=== PATIENT | male | born 1965 | race Caucasian/White ===

== ENCOUNTER → 2020-09-04 13:32 | Outpatient (BNVA) | payer MEDICARE, OTHER, SELFPAY | PROVIDERS: PCP Nurse Practitioner Primary Care; Referring Provider Nurse Practitioner Primary Care; Visit Provider Nurse Practitioner Family | DX: Z13.89 Encounter for screening for other disorder (principal) | CPT/HCPCS: Q3014 ==

== ENCOUNTER 2020-09-05 10:25 | Outpatient (REF) | payer MEDICARE, OTHER, SELFPAY ==
[2020-09-05 11:13] LABS: Hematocrit 47.4 % (42-52); Hemoglobin 15.5 g/dl (14.0-18.0); Mean Corpuscular HGB Conc 32.7 g/dl (31.0-36.0); Mean Corpuscular Hemoglobin 30.7 pg (27.0-33.0); Mean Corpuscular Volume 93.9 fL (80-98); Mean Platelet Volume 10.6 fL (9.4-12.4); Platelet Count 171 X10*3/uL (160-400); Red Blood Count 5.05 X10*6/uL (4.60-5.80); Red Cell Distribution Width 12.2 % (11.0-16.0); White Blood Count 5.9 X10*3/uL (4.8-10.8)
[2020-09-05 12:01] LABS: Alanine Aminotransferase 82 U/L (0-40); Albumin Level 4.7 g/dL (3.5-5.0); Alkaline Phosphatase 60 U/L (39-117); Anion Gap 13 (12-20); Aspartate Amino Transferase 56 U/L (5-37); Blood Urea Nitrogen 13 mg/dL (9-16); Calcium 9.5 mg/dL (8.4-10.2); Carbon Dioxide 29 mmol/L (22-29); Chloride 104 mmol/L (96-108); Estimated Glomerular Filt Rate > 60; Glucose Random 80 mg/dL (60-115); Potassium 4.8 mmol/l (3.3-5.1); Sodium 141 mmol/L (135-145); Total Protein 7.7 g/dL (6.5-8.0)
== END 2020-09-05 10:26 | disposition home or self-care (01) ==
LOC: HO.LAB 10:25
PROVIDERS: PCP Nurse Practitioner Primary Care; Visit Provider Nurse Practitioner Family
DX: R19.7 Diarrhea, unspecified (principal); R14.0 Abdominal distension (gaseous)
CPT/HCPCS: 36415; 80053; 85027

== ENCOUNTER 2020-12-03 19:45 | Emergency (ER) | payer MEDICARE, OTHER, SELFPAY ==
[2020-12-03 19:59] VITALS: BP 135/96; BP 140/50; PULSE 73; PULSE 77; RESP 18; TEMP 37.1; O2SAT 92; O2SAT 98; BMI 24.3
--- NOTE | 2020-12-03 20:17 | PC.NURSE ---
assumed care of pt. Pt resting in stretcher in NAD. PA in room for eval.
--- NOTE | 2020-12-03 21:21 | ED_ITS ---
HPI - Overdose General Chief Complaint: Overdose Stated Complaint: OD Time Seen by Provider: 12/03/20 21:20 Source: patient Mode of arrival: ambulatory Limitations: no limitations History of Present Illness HPI Narrative: Patient presents to ED for accidental overdose on heroin. Patient states he has been clean for a while and then he saw some body doing heroin a park and had urgently took some heroin. Patient states over the was accidental. Patient states he was not trying to kill himself. Patient is erase that he does not want detox and able to stop doing heroin by myself. Patient denies any suicidal or homicidal thoughts Related Data Home Medications Medication Instructions Recorded Confirmed aspirin 81 mg tablet,delayed 81 mg PO DAILY 09/04/20 09/04/20 release atorvastatin 10 mg tablet 10 mg PO BEDTIME 09/04/20 09/04/20 propranolol 120 mg capsule,24 120 mg PO BEDTIME 09/04/20 09/04/20 hr,extended release Previous Rx's Medication Instructions Recorded methylcellulose (laxative) 500 mg 500 mg PO DAILY #30 tab 09/04/20 tablet Allergies Allergy/AdvReac Type Severity Reaction Status Date / Time No Known Allergies Allergy Verified 12/03/20 19:58 Review of Systems Review of Systems: Yes all other systems are reviewed and are negative Constitutional: Constitutional: Reports as per HPI and Reports no additional constitutional complaints Eyes: Eyes: Reports as per HPI and Reports no additional eye complaints ENT: Reports system reviewed and no additional complaints, except as docum ented and Reports as per HPI Cardiovascular: Cardiovascular: Reports as per HPI and Reports no additional cardiovascular complaints Respiratory: Respiratory: Reports as per HPI and Reports no additional respiratory complaints Gastrointestinal: Gastrointestinal: Reports as per HPI and Reports no additional gastrointestinal complaints Genitourinary: Genitourinary: Reports no additional male genitourinary complaints and Reports as per HPI Musculoskeletal: Musculoskeletal: Reports no additional musculoskeletal complaints and Reports as per HPI Neurologic: Reports system reviewed and no additional complaints, except as documented and Reports as per HPI Psychiatric: Psychiatric: Reports no additional psychiatric complaints and Reports as per HPI PMFSH Past Medical History Medical History (Updated 12/04/20 @ 00:01 by Trip Mai) EtOH dependence Heroin addiction Surgical History (Updated 09/04/20 @ 13:39 by HOME Neri) History of back surgery (~01/2013) Hx of colonoscopy (~2010) Hx of rotator cuff surgery (~08/2013) Family History Family History (Updated 09/04/20 @ 13:41 by HOME Nrei) Father Heart disease Myocardial infarct Mother Stomach cancer Social History Social History (Updated 09/04/20 @ 13:44 by HOME Neri) Alcohol intake: current Alcohol intake frequency: 3 or more drinks per day Alcohol type: beer Smoking Status: Former smoker Advance Directives: No Advance Directives Information Provided: Yes Physical Exam Vital Signs: Vital Signs: Last Vital Signs Temp 98.7 F 12/03/20 19:59 Pulse 73 12/03/20 19:59 Resp 18 12/03/20 19:59 BP 135/96 H 12/03/20 19:59 Pulse Ox 98 12/03/20 19:59 Body Mass Index 24.3 Const: General: cooperative, healthy appearing, comfortable, no acute distress, well developed, alert and awake Orientation/consciousness: patient oriented x3 HENMT: Head: Yes normal to inspection, Yes No palpable skull fracture present, Yes normocephalic, Yes atraumatic, Yes abrasion, No Bermudez's sign, No contusion, No cranial bruits, No hematoma, No laceration, No occipital foramen tenderness, No palpable skull fracture, No raccoon eyes, No scalp lesion, No scalp tenderness, No Temporal artery tenderness present and No periorbital ecchymosis Eyes: General: appearance normal, both eyes and all related structures Neck: Neck: Yes normal visual inspection, Yes full ROM, Yes no lymphadenopathy, Yes no meningeal signs, Yes trachea midline, Yes supple and No tender Chest: Chest palpation & inspection: normal inspection of the chest and normal palpation of entire chest wall Resp: Effort & Inspection: normal respiratory effort and able to speak in complete sentences Auscultation: clear to auscultation bilaterally Cardio: Jugular venous distension: no JVD Heart sounds: S1 normal heart sound present and S2 normal heart sound present GI: Inspection: Yes normal to inspection and No abdominal wall ecchymosis Palpation (GI): Soft to palpation, not firm, nontender, no guarding and not rigid : General: No CVA tenderness and Yes no CVA tenderness Back/Spine/Pelvis: Back: no CVA tenderness, No CVA tenderness and No back tenderness Skin: General skin exam: no rashes or lesions noted and elasticity normal Neuro: General: patient oriented x3, no meningeal signs and CN's II-XI intact bilaterally Cranial nerves: Yes CN's II-XII intact bilaterally Extrem: General: Yes normal to inspection and Yes full ROM Psych: Appearance: grossly normal, well kempt and not disheveled Course Course Course Narrative: Patient does not want detox. Patient alert oriented x3. Will evaluate patient for least on a half to make sure oxygen does not desaturate. Reevaluation(s) Reevaluation #1: Patient vital signs remained stable. Patient's O2 saturation remained above 97%. Patient 1 episode of emesis resolved with Reglan. Once again patient does not want detox will be discharged. MDM - Overdose MDM Narrative Medical decision making narrative: Opioid abuse. Accidental overdose Discharge Plan Discharge Clinical Impression: Drug overdose, Opiate abuse, episodic Patient Disposition: Home, Self-Care Instructions: Adult Overdose (ED), Opioid Use Disorder (ED) Additional Instructions: Return to the ED for any suicidal/homicidal ideation, auditory/visual hallucinations, or any other physical complaints. Prescriptions: No Action propranolol 120 mg capsule,extended release 24 hr 120 mg PO BEDTIME RF: 0 atorvastatin 10 mg tablet 10 mg PO BEDTIME RF: 0 aspirin [Adult Low Dose Aspirin] 81 mg tablet,delayed release (DR/EC) 81 mg PO DAILY RF: 0 Citrucel 500 mg tablet 500 mg PO DAILY Qty: 30 RF: 2 Referrals: Gunjan Wright [facility] [Primary Care Provider] - 2 days (Opiate abuse) Interventions: ED Discharge Assessment Last Done: 12/03/20 22:30 Discharge Date/Time: 12/03/20 22:31 Print Language: Malawian
[2020-12-03] MEDS: Metoclopramide HCl 10 MG/2 ML VIAL IM (21:25)
--- NOTE | 2020-12-03 21:29 | PC.NURSE ---
PT VOMITING IN ROOM ON FLOOR. MD AWARE AND MEDICATED PER EMAR FOR NAUSEA. PT REQUESTING ADENIKE LAUREN. PT GIVEN ICE CHIPS.
--- NOTE | 2020-12-03 22:27 | PC.NURSE ---
PT WALKS WITH STEADY EVEN GAIT TO DECON TO RETRIEVE BELONGINGS.PT VERBALIZE U/S OF DISCHARGE INSTRUCTIONS AND LEFT ED AMB.
== END 2020-12-03 22:31 | disposition home or self-care (01) ==
PROVIDERS: Emergency Provider Internal Medicine; PCP Nurse Practitioner Primary Care
DX: T40.1X1A Poisoning by heroin, accidental (unintentional), initial encounter (principal); F11.10 Opioid abuse, uncomplicated; Y92.9 Unspecified place or not applicable; Z79.899 Other long term (current) drug therapy; Z71.51 Drug abuse counseling and surveillance of drug abuser
CPT/HCPCS: 96372; 99283; J2765

== ENCOUNTER 2021-08-03 13:02 | Emergency (ER) | payer MEDICARE, OTHER, SELFPAY ==
--- NOTE | ~2021-08-03 | XR_ITS ---
EXAMINATION: CR LEFT HAND/WRIST CLINICAL INFORMATION: Fall. COMPARISON: Report from prior right hand films dated 05/30/2012. Actual images are not available for review. TECHNIQUE: 4 views of the left hand/wrist. FINDINGS: There is a acute mildly impacted and nondisplaced transverse fracture of the distal radius with overlying prominent soft tissue swelling. No other acute fracture or dislocation is seen. No radiopaque foreign body is seen in the soft tissues. The carpal rows remain intact. Minimal osteoarthritic changes are seen at the distal interphalangeal joints of all digits. XR/XR hand wrist LT IMPRESSION: Nondisplaced partially impacted transverse fracture of the distal radius is seen with overlying prominent soft tissue swelling.
[2021-08-03 13:08] VITALS: BP 140/90; PULSE 73
[2021-08-03 13:15] VITALS: BP 112/72; PULSE 69; RESP 18; TEMP 36.9; O2SAT 99; BMI 24.3
--- NOTE | 2021-08-03 13:56 | ED_ITS ---
HPI - Overdose General Chief Complaint: Overdose Stated Complaint: HEROIN OD,NARCAN GIVEN W/GOOD RESULT Time Seen by Provider: 08/03/21 13:55 Source: patient Mode of arrival: EMS Limitations: no limitations History of Present Illness HPI Narrative: This is a 55-year-old male past medical history significant for opiate use disorder, alcohol use disorder, hypertension presents to the emergency department with EMS for a heroin overdose just prior to his arrrival. According to EMS he was found unresponsive by a police, however patient tells me he was not unresponsive. He was given 1 dose of Narcan, patient tells me he remembers getting this. Patient tells me that he tripped on the curb, and landed on his left wrist, he tells me he did not hit his head or lose consciousness. He denies headache, vision changes or dizziness. He is currently not on any blood thinners. Patient tells me that he usually snorts 1- 2 bags of heroin a day, today he snorted 1 bag, and he is unsure why he overdosed from just this. He also tells me that he was smoking a joint that was laced with fentanyl. He denies any medical complaints at this time such as chest pain, shortness of breath, fevers, chills, nausea, vomiting, diarrhea. Denies SI and HI MD complaint: accidental overdose Onset (ago): minute(s) (30) Intent: other (accidental) How Overdose Was Discovered: other (found by PD ) Context: Accidental Overdose: wanted to get high Treatments Prior to Arrival: narcan Related Data Home Medications Medication Instructions Recorded Confirmed aspirin 81 mg tablet,delayed 81 mg PO DAILY 09/04/20 09/04/20 release (Adult Low Dose Aspirin) atorvastatin 10 mg tablet 10 mg PO BEDTIME 09/04/20 09/04/20 propranolol 120 mg capsule,24 120 mg PO BEDTIME 09/04/20 09/04/20 hr,extended release Previous Rx's Medication Instructions Recorded methylcellulose (laxative) 500 mg 500 mg PO DAILY #30 tab 09/04/20 tablet (Citrucel) naloxone 4 mg/actuation nasal 4 mg INTRANASAL Q2M PRN #2 ea 08/03/21 spray (Narcan) Allergies Allergy/AdvReac Type Severity Reaction Status Date / Time No Known Allergies Allergy Verified 08/03/21 13:15 Review of Systems Review of Systems: Constitutional : No Weight loss, No Fever, No Chills, No Fatigue, No Malaise ENT/Mouth : No sore throat, No Rhinorrhea Eyes: No Eye Pain, No Swelling, No Redness Cardiovascular : No Chest Pain, No SOB, No Dyspnea on Exertion, No Orthopnea, No Edema, No Palpitations Respiratory : No Cough, No Sputum, No Wheezing Gastrointestinal : No Nausea, No Vomiting, No Diarrhea, No Constipation, No abdominal Pain, No Hematochezia, No Melena Genitourinary : No Dysuria, No Urinary Frequency, No Hematuria, Musculoskeletal : No joint pain, No Myalgias, No Joint Swelling Skin : No Skin Lesions, No rash Neuro : No Weakness, No Numbness, No Dizziness, No Headache Psych : No Anxiety/Panic, No Depression All other systems reviewed and are negative COUNTS INCLUDE 234 BEDS AT THE [facility] Past Medical History Attestation statement: The following information was validated with the patient. Source: old records reviewed and nursing notes reviewed Medical History EtOH dependence Heroin addiction Hypertension Surgical History History of back surgery (~01/2013) Hx of colonoscopy (~2010) Hx of rotator cuff surgery (~08/2013) Family History Family History Father Heart disease Myocardial infarct Mother Stomach cancer Social History Social History Alcohol intake: current Alcohol intake frequency: 3 or more drinks per day Alcohol type: beer Patient Tobacco Use Status: Never used Tobacco Use of substances other than those prescribed or required for medical reasons: Yes Substance Use Type: Heroin and Marijuana Advance Directives: No Advance Directives Information Provided: Yes Physical Exam Vital Signs: Vital Signs: Last Vital Signs Temp 98.5 F 08/03/21 13:15 Pulse 69 08/03/21 13:15 Resp 18 08/03/21 13:15 BP 112/72 08/03/21 13:15 Pulse Ox 99 08/03/21 13:15 BMI result Body Mass Index 24.3 VSS Appearance: Alert.? Oriented X3.? No acute distress.? Head: Normocephalic, atraumatic, no step-offs or deformities Eyes: Pupils equal, round and reactive to light.? ENT: Pharynx normal.? Neck: Normal inspection.? Neck supple.? CVS: Normal heart rate and rhythm.? Pulses normal.? Respiratory: No respiratory distress.? Breath sounds normal.? Abdomen: Soft and nontender.? Skin: Skin warm and dry.? Normal skin color.? Normal skin turgor.? Extremities: No lower extremity edema.? No calf ttp. 5/5 strength to bilateral upper and lower extremities + discomfort with ROM of left wrist no step-offs or deformities, no point tenderness. Back: No midline tenderness, no C-spine tenderness, full range of motion, no CVA tenderness bilaterally Neuro: Oriented X 3.? No motor deficit.? No sensory deficit. CN 2-12 intact. Course Reevaluation(s) Reevaluation #1: Thursday patient has an apt with his doctor to discuss initiation of methadone. He spoke to Alex, and at this time he would not like to be placed anywhere. He states he will follow-up with his doctor. Patient appears well, saturating well, vital signs are stable. Patient eating and keeping food down. He tells me he is not suicidal or homicidal. Patient is safe for discharge home with PCP follow-up. Time: 15:14 MDM - Overdose MDM Narrative Medical decision making narrative: 1400 55-year-old past medical history significant of opiate use disorder presenting to the emergency department via EMS with concerns of a heroin overdose, patient sniffed 1 bag of heroin and smoked a joint w/ fentanyl, was found by PD he did not hit his head also complaining of left wrist pain, was given 1 dose of Narcan on the field w/ improvment. Patient has no complaints. Denies SI and HI. Is seeking detox Physical exam benign. No focal neuro deficits. He reports discomfort with range of motion of left wrist, no point tenderness, no step-offs or deformities, no evident ligament or tendon involvement. Plan monitor patient. Alex will meet with the patient, and speak to him about detox. Critical Care Time Critical Care Time Critical Care Time: No Discharge Plan Discharge Clinical Impression: Drug overdose Patient Disposition: Home, Self-Care Instructions: Adult Overdose (ED) Additional Instructions: Please do not take any medications given to the friends, do not use any drugs, as this can kill you. I gave you a prescription for narcan, this can save your life. Please follow-up with your primary care provider, you told this you would discuss starting methadone with him, this sounds like a good idea. Return to the emergency department with new or worsening symptoms. In case of emergency call 911 Prescriptions: New Narcan 4 mg/actuation spray,non-aerosol 4 mg intranasal Q2M PRN (Reason: opioid overdose) Qty: 2 RF: 2 No Action propranolol 120 mg capsule,extended release 24 hr 120 mg PO BEDTIME RF: 0 atorvastatin 10 mg tablet 10 mg PO BEDTIME RF: 0 aspirin [Adult Low Dose Aspirin] 81 mg tablet,delayed release (DR/EC) 81 mg PO DAILY RF: 0 Citrucel 500 mg tablet 500 mg PO DAILY Qty: 30 RF: 2
[2021-08-03 14:00] VITALS: BP 118/72; PULSE 76; RESP 18; TEMP 36.8; O2SAT 96
--- NOTE | 2021-08-03 15:25 | HO.SUDE ---
SUDE assessment: Patient is a 55 year old Guinean speaking male who presented to [facility] ED after an accidental overdose. Patient reports he has had numerous losses over the past ten years including his parents and some siblings. Patient states he uses to suppress feelings of depression related to those losses. Patient reports multiple injuries that have left him living with chronic pain. According to patient, he ran into his nephew who noticed that he was in pain. Patient initially declined nephews invitation to use however after consuming a beer and some marijuana patient snorted a like of heroin when offered which led to the overdose. Patient reports to this group underwriter that he does not use frequently, stating he using intranasally and that he has never injected. Patient reports on average he uses once a week however reports there are periods where he will use everyday for a week and periods where he doesn't use at all for over a week. Patient denies experiencing withdrawal symptoms. Patient reports he first started using heroin around the age of [age]. Patient denies a family history of substance use. Patient reports he has been to detox at [facility] in the past and that he completed the outpatient program. Patient reports it was helpful however states he ultimately started using again. Patient reports he has never used Suboxone or methadone. Patient reports no formal psychiatric diagnosis however reports symptoms of depression at times. Patient reports he is not interested in going to detox at this time. Patient states he has an appointment with his doctor on Thursday and that they planned to discuss starting MAT at that time. This group underwriter discussed Suboxone and methadone with patient and provided education. Discussed case with patient's ED provider. Patient provided with contact information for this group underwriter in the event that he has additional questions or difficulty accessing treatment after discharge.
[2021-08-03 16:00] VITALS: BP 114/76; PULSE 72; RESP 18; TEMP 36.9; O2SAT 97
--- NOTE | 2021-08-03 16:30 | PC.NURSE ---
patient a&ox3, calm/compliant, xray obtained, pt ate a meal while in the ed, left arm to be splinted, recovery coaches speaking with patient,
== END 2021-08-03 17:33 | disposition home or self-care (01) ==
PROVIDERS: Emergency Provider Emergency Medicine
DX: T40.1X1A Poisoning by heroin, accidental (unintentional), initial encounter (principal); R40.4 Transient alteration of awareness; S52.502A Unspecified fracture of the lower end of left radius, initial encounter for closed fracture; W10.1XXA Fall (on)(from) sidewalk curb, initial encounter; Y92.414 Local residential or business street as the place of occurrence of the external cause; Y93.01 Activity, walking, marching and hiking; Y92.480 Sidewalk as the place of occurrence of the external cause; Y99.9 Unspecified external cause status
CPT/HCPCS: 29125; 73110; 73130; 99284

== ENCOUNTER 2021-08-07 06:34 | Outpatient (REF) | payer MEDICARE, OTHER, SELFPAY ==
--- NOTE | ~2021-08-07 | XR_ITS ---
EXAMINATION: XR WRIST, LEFT CLINICAL INFORMATION: Left wrist fracture, follow-up. COMPARISON: 08/03/2021 left hip radiographs. TECHNIQUE: PA, lateral, and oblique views of the left wrist. FINDINGS: Again seen is a nondisplaced distal radial fracture without significant change. The distal ulna is intact. The carpal bones are normally aligned. Old healed fifth metacarpal fracture. The soft tissues are unremarkable. XR/XR wrist LT min 3V IMPRESSION: Acute, nondisplaced distal left radial fracture without significant change.
== END 2021-08-07 06:35 | disposition home or self-care (01) ==
LOC: HO.HOSX 06:34
PROVIDERS: Visit Provider Physician Assistant
DX: S52.502A Unspecified fracture of the lower end of left radius, initial encounter for closed fracture (principal); F11.20 Opioid dependence, uncomplicated; X58.XXXA Exposure to other specified factors, initial encounter; Y93.9 Activity, unspecified; Y92.9 Unspecified place or not applicable; Y99.9 Unspecified external cause status
CPT/HCPCS: 29125; 73110; 99202

== ENCOUNTER 2021-08-14 08:11 | Outpatient (REF) | payer MEDICARE, OTHER, SELFPAY ==
--- NOTE | ~2021-08-14 | XR_ITS ---
EXAMINATION: XR WRIST, LEFT CLINICAL INFORMATION: Pain in left wrist. COMPARISON: XR left wrist 08/07/2021. TECHNIQUE: PA, lateral, and oblique views of the left wrist. XR/XR wrist LT min 3V FINDINGS AND IMPRESSION: There is no significant change in the appearance of the nondisplaced comminuted fracture of the distal radius. There is no apparent callus formation. There are no other interval changes.
== END 2021-08-14 08:12 | disposition home or self-care (01) ==
LOC: HO.HOSX 08:11
PROVIDERS: Visit Provider Physician Assistant
DX: M25.532 Pain in left wrist (principal); S52.512A Displaced fracture of left radial styloid process, initial encounter for closed fracture; X58.XXXA Exposure to other specified factors, initial encounter; Y93.9 Activity, unspecified; Y92.9 Unspecified place or not applicable; Y99.8 Other external cause status; I10 Essential (primary) hypertension; F10.20 Alcohol dependence, uncomplicated; F11.20 Opioid dependence, uncomplicated
CPT/HCPCS: 29075; 73110; 99212

== ENCOUNTER 2021-08-28 08:12 | Outpatient (REF) | payer MEDICARE, OTHER, SELFPAY ==
--- NOTE | ~2021-08-28 | XR_ITS ---
EXAMINATION: XR WRIST, LEFT CLINICAL INFORMATION: Pain in the left wrist. COMPARISON: 08/14/2021 TECHNIQUE: PA, lateral, and oblique views of the left wrist. FINDINGS: Once again fracture of the distal radius is seen. Mild bony resorption consistent with early healing. Fracture positioning is similar to previous. Some mild distraction. No acute finding in the wrist. XR/XR wrist LT min 3V IMPRESSION: Fracture of the distal radius is seen. Comminuted. No change in fracture fragment position.
== END 2021-08-28 08:13 | disposition home or self-care (01) ==
LOC: HO.HOSX 08:12
PROVIDERS: Visit Provider Physician Assistant
DX: S52.502D Unspecified fracture of the lower end of left radius, subsequent encounter for closed fracture with routine healing (principal)
CPT/HCPCS: 29075; 73110; 99212

== ENCOUNTER 2021-09-18 08:03 | Outpatient (REF) | payer MEDICARE, OTHER, SELFPAY ==
--- NOTE | ~2021-09-18 | XR_ITS ---
EXAMINATION: XR WRIST, LEFT CLINICAL INFORMATION: Left wrist pain. Fracture. COMPARISON: Multiple priors, most recent left wrist radiographs dated 08/28/2021. TECHNIQUE: PA, lateral, and oblique views of the left wrist. FINDINGS: Chronic distal radial fracture in unchanged anatomic alignment with mild new bone/callus formation when compared to the prior examination. No acute fracture or dislocation. No lytic or blastic osseous lesion. No abnormal soft tissue calcification. XR/XR wrist LT min 3V IMPRESSION: Distal radial fracture in unchanged anatomic alignment with mild new bone/callus formation.
== END 2021-09-18 08:04 | disposition home or self-care (01) ==
LOC: HO.HOSX 08:03
PROVIDERS: Visit Provider Physician Assistant
DX: S52.502D Unspecified fracture of the lower end of left radius, subsequent encounter for closed fracture with routine healing (principal)
CPT/HCPCS: 73110; 99212

== ENCOUNTER 2021-10-10 13:51 | Emergency (ER) | payer MEDICARE, OTHER, SELFPAY ==
--- NOTE | 2021-10-10 14:11 | ED.ALCOHOL ---
HPI - Alcohol General Chief Complaint: ETOH/Substance Use Stated Complaint: ETOH Time Seen by Provider: 10/10/21 14:10 Source: patient Mode of arrival: EMS Limitations: no limitations History of Present Illness HPI narrative: 55-year-old male with a history of opioid use disorder, alcohol use disorder, and hypertension, presents via EMS for evaluation of heroin use. Police gave patient option of going to emergency room or going to custodial, patient came here. Patient states he snorted something he is not sure what it was, and he was in front of a store, home health care respiratory therapist called police. Also endorses one 24 oz beer today. Patient states he has had long periods of sobriety, and has had multiple admissions to rehab facilities. Denies homicidal ideation suicidal ideation, denies any psych history, would like to talk to kids activities coach. Related Data Home Medications Medication Instructions Recorded Confirmed aspirin 81 mg tablet,delayed 81 mg PO DAILY 09/04/20 09/04/20 release (Adult Low Dose Aspirin) atorvastatin 10 mg tablet 10 mg PO BEDTIME 09/04/20 09/04/20 propranolol 120 mg capsule,24 120 mg PO BEDTIME 09/04/20 09/04/20 hr,extended release Previous Rx's Medication Instructions Recorded methylcellulose (laxative) 500 mg 500 mg PO DAILY #30 tab 09/04/20 tablet (Citrucel) naloxone 4 mg/actuation nasal 4 mg INTRANASAL Q2M PRN #2 ea 08/03/21 spray (Narcan) Allergies Allergy/AdvReac Type Severity Reaction Status Date / Time No Known Allergies Allergy Verified 09/18/21 11:27 Review of Systems Constitutional: Constitutional: Denies body ache(s), Denies chills, Denies fatigue, Denies fever(s), Denies headache(s), Denies malaise and Denies weakness Eyes: Eyes: Denies diplopia ENT: Denies vertigo, Denies dizziness, Denies otalgia, Denies headache(s), Denies post nasal drip, Denies sinus pain, Denies sore throat and Denies throat swelling Cardiovascular: Cardiovascular: Denies chest pain, Denies syncope, Denies lightheadedness, Denies Loss of Consciousness, Denies palpitations and Denies dyspnea Respiratory: Respiratory: Denies chest congestion, Denies cough and Denies dyspnea Gastrointestinal: Gastrointestinal: Reports abdominal pain, Denies hematochezia, Denies constipation, Denies diarrhea and Denies vomiting Musculoskeletal: Musculoskeletal: Reports no additional musculoskeletal complaints Neurologic: Denies confusion, Denies vertigo, Denies dizziness, Denies syncope, Denies headache(s) and Denies weakness Psychiatric: Psychiatric: Denies anxiety, Denies confusion and Denies depression Endocrine: Endocrine: Denies fatigue and Denies palpitations Allergic/Immunologic: Allergic/Immunologic: Denies throat swelling PMFSH Past Medical History Medical History EtOH dependence Heroin addiction Hypertension Surgical History History of back surgery (~01/2013) Hx of colonoscopy (~2010) Hx of rotator cuff surgery (~08/2013) Family History Family History Father Heart disease Myocardial infarct Mother Stomach cancer Social History Social History Alcohol intake: current Alcohol intake frequency: 3 or more drinks per day Alcohol type: beer Patient Tobacco Use Status: Never used Tobacco Substance Use Type: Heroin and Marijuana Advance Directives: No Advance Directives Information Provided: No Current occupational status: disabled Current occupation: rt handed Physical Exam Vital Signs: Vital Signs: Last Vital Signs Temp 98.1 F 10/10/21 14:12 Pulse 70 10/10/21 14:12 Resp 18 10/10/21 14:12 Pulse Ox 94 10/10/21 14:12 BMI result Body Mass Index 26.6 Const: General: No confusion Nutritional Appearance: well nourished Orientation/consciousness: No confusion Limitations: no limitations HENMT: Head: Yes normal to inspection, Yes normocephalic and Yes atraumatic Ears: hearing grossly normal bilaterally and external ears normal General nose exam: Normal external nose present Face and sinus: Yes normal facial exam Throat: Yes posterior oropharynx normal Eyes: Conjunctivae: conjunctivae normal Pupils: Pinpoint pupils bilaterally EOM: EOMs intact bilaterally Neck: Neck: Yes full ROM, Yes no lymphadenopathy and Yes supple Resp: Effort & Inspection: normal respiratory effort and able to speak in complete sentences Auscultation: clear to auscultation bilaterally, no crackles, no rales, no rhonchi and no wheezes Cardio: Rate: regular rate Rhythm: regular rhythm Heart sounds: S1 normal heart sound present and S2 normal heart sound present GI: Inspection: Yes normal to inspection Palpation (GI): Soft to palpation, nontender, no guarding and not rigid Percussion: Yes normal to percussion Auscultation: normal bowel sounds Skin: General skin exam: no rashes or lesions noted Neuro: General: No confusion Extrem: General: Yes normal to inspection and Yes full ROM Psych: Appearance: grossly normal Affect: normal affect Attitude: cooperative Thought process: Normal thought process present Course Course Course Narrative: 55-year-old male presents to emergency room as alternative to going to custodial. patient used heroin and drank alcohol today, and would like to talk to kids activities coach. On exam, patient is talking tangentially, denied SI/HI. will get labs, urine drug screen, alcohol. Put in consult to care team. Reevaluation(s) Reevaluation #1: Patient requests to leave. States he can follow-up with his primary care provider tomorrow. States he has Narcan at home and can use that if needed. Does not want to wait for kids activities coach. Patient is alert and oriented, has intact cognition MDM - Alcohol Lab Data Result diagrams: 10/10/21 15:47 10/10/21 15:47 Labs: Lab Results 10/10/21 10/10/21 10/10/21 Range/Units 15:47 15:47 15:48 WBC 11.4 H (4.8-10.8) X10*3/uL RBC 4.81 (4.60-5.80) X10*6/uL Hgb 14.7 (14.0-18.0) g/dl Hct 43.7 (42.0-52.0) % MCV 90.9 (80.0-98.0) fL MCH 30.6 (27.0-33.0) pg MCHC 33.6 (31.0-36.0) g/dl RDW 12.4 (11.0-16.0) % Plt Count 283 (160-400) X10*3/uL MPV 10.3 (9.4-12.4) fL Immature Gran % (Auto) 0.2 (0.0-0.4) % Neut % (Auto) 69.8 (45-73) % Lymph % (Auto) 18.4 L (20-40) % Bullitt % (Auto) 9.1 (2-11) % Eos % (Auto) 1.9 (0-4) % Baso % (Auto) 0.6 (0-2) % Lymph # (Auto) 2.1 (1.2-4.9) X10*3/uL Bullitt # (Auto) 1.0 (0.1-1.2) X10*3/uL Eos # (Auto) 0.2 (0.0-0.4) X10*3/uL Baso # (Auto) 0.1 (0.0-0.2) X10*3/uL Abs Immat Gran (auto) 0.02 (0.00-0.03) X10*3/uL Absolute Neuts (auto) 8.0 (2.0-8.3) x10*3/uL Absolute Nucleated RBC 0.000 (0.0-0.012) X10*3/uL Nucleated RBC % (auto) 0.0 (0.0-0.2) /100WBC Sodium 139 (135-145) mmol/L Potassium 4.6 (3.3-5.1) mmol/L Chloride 105 (96-108) mmol/L Carbon Dioxide 25 (22-29) mmol/L Anion Gap 14 (12-20) BUN 9 (9-16) mg/dL Creatinine 0.94 (0.5-1.4) mg/dL Estim Creat Clear Calc 83.0 Estimated GFR > 60 Random Glucose 106 (60-115) mg/dL Calcium 9.9 (8.4-10.2) mg/dL Total Bilirubin 0.6 (0.0-1.0) mg/dL AST 51 H (5-37) U/L ALT 74 H (0-40) U/L Alkaline Phosphatase 62 (39-117) U/L Total Protein 7.8 (6.5-8.0) g/dL Albumin 4.5 (3.5-5.0) g/dL Ethyl Alcohol 16 mg/dL COVID-19 ([facility]) (Negative) COVID-19 Clin Com 10/10/21 Range/Units 15:48 WBC (4.8-10.8) X10*3/uL RBC (4.60-5.80) X10*6/uL Hgb (14.0-18.0) g/dl Hct (42.0-52.0) % MCV (80.0-98.0) fL MCH (27.0-33.0) pg MCHC (31.0-36.0) g/dl RDW (11.0-16.0) % Plt Count (160-400) X10*3/uL MPV (9.4-12.4) fL Immature Gran % (Auto) (0.0-0.4) % Neut % (Auto) (45-73) % Lymph % (Auto) (20-40) % Bullitt % (Auto) (2-11) % Eos % (Auto) (0-4) % Baso % (Auto) (0-2) % Lymph # (Auto) (1.2-4.9) X10*3/uL Bullitt # (Auto) (0.1-1.2) X10*3/uL Eos # (Auto) (0.0-0.4) X10*3/uL Baso # (Auto) (0.0-0.2) X10*3/uL Abs Immat Gran (auto) (0.00-0.03) X10*3/uL Absolute Neuts (auto) (2.0-8.3) x10*3/uL Absolute Nucleated RBC (0.0-0.012) X10*3/uL Nucleated RBC % (auto) (0.0-0.2) /100WBC Sodium (135-145) mmol/L Potassium (3.3-5.1) mmol/L Chloride (96-108) mmol/L Carbon Dioxide (22-29) mmol/L Anion Gap (12-20) BUN (9-16) mg/dL Creatinine (0.5-1.4) mg/dL Estim Creat Clear Calc Estimated GFR Random Glucose (60-115) mg/dL Calcium (8.4-10.2) mg/dL Total Bilirubin (0.0-1.0) mg/dL AST (5-37) U/L ALT (0-40) U/L Alkaline Phosphatase (39-117) U/L Total Protein (6.5-8.0) g/dL Albumin (3.5-5.0) g/dL Ethyl Alcohol mg/dL COVID-19 ([facility]) Negative (Negative) COVID-19 Clin Com See Note Discharge Plan Discharge Clinical Impression: Opioid abuse Patient Disposition: Home, Self-Care Instructions: Opioid Use Disorder (ED) Additional Instructions: please return to the emergency room if you have any new or concerning symptoms, you are suicidal, homicidal, or you need help withdrawing from opioids or alcohol. Prescriptions: No Action Narcan 4 mg/actuation spray,non-aerosol 4 mg intranasal Q2M PRN (Reason: opioid overdose) Qty: 2 2RF Rx Instructions: spray 1 dose into ONE nostril; alternate nostrils w each dose until help arrives propranolol 120 mg capsule,extended release 24 hr 120 mg PO BEDTIME 0RF atorvastatin 10 mg tablet 10 mg PO BEDTIME 0RF aspirin [Adult Low Dose Aspirin] 81 mg tablet,delayed release (DR/EC) 81 mg PO DAILY 0RF Citrucel 500 mg tablet 500 mg PO DAILY Qty: 30 2RF Interventions: ED Discharge Assessment Last Done: 10/10/21 16:11 Discharge Date/Time: 10/10/21 16:11
[2021-10-10 14:12] VITALS: BP 150/97; PULSE 70; PULSE 86; RESP 18; TEMP 36.7; O2SAT 94; O2SAT 97; BMI 26.6
--- NOTE | 2021-10-10 15:15 | PC.NURSE ---
PT stated that he asked magazine keeper to put his phone in his pocket after arrival to this facility. This RN called [facility] to inquire about that whereabouts of the phone. Dispatcher asked magazine keeper and they stated that they did not see the phone.
[2021-10-10 15:58] LABS: MANUAL DIFF FLAG NO
[2021-10-10 15:59] LABS: Basophils Absolute Auto 0.1 X10*3/uL (0.0-0.2); Basophils Percent Auto 0.6 % (0-2); Eosinophils Absolute Auto 0.2 X10*3/uL (0.0-0.4); Eosinophils Percent Auto 1.9 % (0-4); Hematocrit 43.7 % (42.0-52.0); Hemoglobin 14.7 g/dl (14.0-18.0); Imm Gran Abs Auto 0.02 X10*3/uL (0.00-0.03); Imm Gran Pct Auto 0.2 % (0.0-0.4); Lymphocytes Absolute Auto 2.1 X10*3/uL (1.2-4.9); Lymphocytes Percent Auto 18.4 % (20-40); Mean Corpuscular HGB Conc 33.6 g/dl (31.0-36.0); Mean Corpuscular Hemoglobin 30.6 pg (27.0-33.0); Mean Corpuscular Volume 90.9 fL (80.0-98.0); Mean Platelet Volume 10.3 fL (9.4-12.4); Monocytes Percent Auto 9.1 % (2-11); Neutrophils Percent Auto 69.8 % (45-73); Platelet Count 283 X10*3/uL (160-400); Red Blood Count 4.81 X10*6/uL (4.60-5.80); Red Cell Distribution Width 12.4 % (11.0-16.0); White Blood Count 11.4 X10*3/uL (4.8-10.8)
[2021-10-10 16:15] LABS: COVID-19 Test Negative (Negative); IDNOW Serial# 9DD0AD1C
[2021-10-10 16:17] LABS: Ethanol 16 mg/dL
[2021-10-10 16:19] LABS: Alanine Aminotransferase 74 U/L (0-40); Albumin Level 4.5 g/dL (3.5-5.0); Alkaline Phosphatase 62 U/L (39-117); Anion Gap 14 (12-20); Aspartate Amino Transferase 51 U/L (5-37); Bilirubin Total 0.6 mg/dL (0.0-1.0); Blood Urea Nitrogen 9 mg/dL (9-16); Calcium 9.9 mg/dL (8.4-10.2); Carbon Dioxide 25 mmol/L (22-29); Chloride 105 mmol/L (96-108); Estimated Glomerular Filt Rate > 60; Glucose Random 106 mg/dL (60-115); Potassium 4.6 mmol/L (3.3-5.1); Sodium 139 mmol/L (135-145); Total Protein 7.8 g/dL (6.5-8.0)
== END 2021-10-10 16:11 | disposition home or self-care (01) ==
PROVIDERS: Physician Assistant; Emergency Provider Emergency Medicine Emergency Medical Services; PCP Nurse Practitioner Primary Care
DX: F11.10 Opioid abuse, uncomplicated (principal); F10.129 Alcohol abuse with intoxication, unspecified; Y90.0 Blood alcohol level of less than 20 mg/100 ml; I10 Essential (primary) hypertension; Z20.822 Contact with and (suspected) exposure to COVID-19; Z79.899 Other long term (current) drug therapy; Z71.51 Drug abuse counseling and surveillance of drug abuser
CPT/HCPCS: 80053; 80307; 82077; 85025; 87635; 99283; 99284

== ENCOUNTER 2021-10-23 06:00 | Outpatient (REF) | payer MEDICARE, OTHER, SELFPAY | END 2021-10-23 06:01 | disposition home or self-care (01) | LOC: HO.HOSX 06:00 | PROVIDERS: Visit Provider Physician Assistant | DX: Z13.89 Encounter for screening for other disorder (principal) ==

== ENCOUNTER 2021-11-20 07:54 | Outpatient (REF) | payer MEDICARE, OTHER, SELFPAY | END 2021-11-20 07:55 | disposition home or self-care (01) | LOC: HO.HOSX 07:54 | PROVIDERS: Visit Provider Physician Assistant | DX: Z13.89 Encounter for screening for other disorder (principal) ==

== ENCOUNTER 2022-02-01 12:26 | Emergency (ER) | payer MEDICARE, OTHER, SELFPAY ==
[2022-02-01 12:43] VITALS: BP 127/83; BP 135/96; PULSE 88; PULSE 94; RESP 18; TEMP 36.8; O2SAT 95; O2SAT 96; BMI 24.2
--- NOTE | 2022-02-01 12:55 | ED.OVERDOSE ---
HPI - Overdose General Chief Complaint: Overdose Stated Complaint: UNRESPONSIVE OD,NARCAN GIVEN W/GOOD RESULT Time Seen by Provider: 02/01/22 12:55 Source: patient Mode of arrival: EMS History of Present Illness HPI Narrative: 56-year-old male with history of hypertension is brought in by EMS for heroin overdose, patient states he snorted 2 bags. As per EMS CPR was conducted for 1 minute and 4 mg of Narcan was given. Patient is currently alert and oriented and is very upset about the fact that the gentleman that was doing drugs with him left him ?like that?. Patient states he is depressed and is requesting to speak with someone. Patient denies any shortness of breath, chest pain/palpitations. Related Data Home Medications Medication Instructions Recorded Confirmed aspirin 81 mg tablet,delayed 81 mg PO DAILY 09/04/20 09/04/20 release (Adult Low Dose Aspirin) atorvastatin 10 mg tablet 10 mg PO BEDTIME 09/04/20 09/04/20 propranolol 120 mg capsule,24 120 mg PO BEDTIME 09/04/20 09/04/20 hr,extended release Previous Rx's Medication Instructions Recorded methylcellulose (laxative) 500 mg 500 mg PO DAILY #30 tab 09/04/20 tablet (Citrucel) naloxone 4 mg/actuation nasal 4 mg INTRANASAL Q2M PRN #2 ea 08/03/21 spray (Narcan) Allergies Allergy/AdvReac Type Severity Reaction Status Date / Time No Known Allergies Allergy Verified 02/01/22 12:43 Review of Systems Review of Systems: Pertinent positives and negatives as stated HPI 10 point review of systems otherwise negative. PMFSH Past Medical History Source: nursing notes reviewed Medical History EtOH dependence Heroin addiction Hypertension Surgical History History of back surgery (~01/2013) Hx of colonoscopy (~2010) Hx of rotator cuff surgery (~08/2013) Family History Family History Father Heart disease Myocardial infarct Mother Stomach cancer Social History Social History Alcohol intake: current Alcohol intake frequency: 3 or more drinks per day Alcohol type: beer Patient Tobacco Use Status: Never used Tobacco Substance Use Type: Heroin and Marijuana Advance Directives: No Advance Directives Information Provided: No Current occupational status: disabled Current occupation: rt handed Physical Exam Vital Signs: Vital Signs: Last Vital Signs Temp 98.3 F 02/01/22 12:43 Pulse 88 02/01/22 12:43 Resp 18 02/01/22 12:43 BP 135/96 H 02/01/22 12:43 Pulse Ox 96 02/01/22 12:43 BMI result Body Mass Index 24.2 VITAL SIGNS: Reviewed. GENERAL: Well developed, well nourished, in no acute distress. HEAD: Normocephalic/atraumatic EYES: PERRLA, EOMI EARS: Ext canals without abnormality OROPHARYNX: no oral lesions noted, posterior pharynx clear LUNGS: Normal breath sounds. No adventitious sounds or accessory muscle use. SpO2<96> CARDIOVASCULAR: Regular rate and rhythm without noted murmurs ABDOMEN: Soft, non-tender, non-distended with bowel sounds. NEUROLOGIC: Alert and oriented x 4. Strength and sensation to light touch were grossly intact x 4. PSYCH: Normal affect, tearful Course Course Course Narrative: 56-year-old male with history and clinical presentation consistent with accidental overdose with heroin, stating he is depressed since requesting to speak with someone from the behavioral team. He will be observed for minimum of 2 hours, he is not interested in detox at this time and will be discharged to home with home Narcan. 1345: Patient now states does not wish to speak with anyone and says that he is ?fine?. Discharge Plan Discharge Clinical Impression: Accidental overdose, Hypertension, Depression Patient Disposition: Home, Self-Care Instructions: Adult Overdose (ED), Depression (ED), Hypertension (ED), DASH Eating Plan (ED) Additional Instructions: 1. Resume all home medications as prescribed. 2. Do not hesitate to return to the emergency room if you experience any worsening of symptoms. Prescriptions: No Action Narcan 4 mg/actuation spray,non-aerosol 4 mg intranasal Q2M PRN (Reason: opioid overdose) Qty: 2 2RF Rx Instructions: spray 1 dose into ONE nostril; alternate nostrils w each dose until help arrives propranolol 120 mg capsule,extended release 24 hr 120 mg PO BEDTIME 0RF atorvastatin 10 mg tablet 10 mg PO BEDTIME 0RF aspirin [Adult Low Dose Aspirin] 81 mg tablet,delayed release (DR/EC) 81 mg PO DAILY 0RF Citrucel 500 mg tablet 500 mg PO DAILY Qty: 30 2RF
== END 2022-02-01 14:36 | disposition home or self-care (01) ==
PROVIDERS: Emergency Provider Student in an Organized Health Care Education/Training Program
DX: T40.1X1A Poisoning by heroin, accidental (unintentional), initial encounter (principal); F33.1 Major depressive disorder, recurrent, moderate; I10 Essential (primary) hypertension; Y92.9 Unspecified place or not applicable; Z79.82 Long term (current) use of aspirin; Z79.899 Other long term (current) drug therapy
CPT/HCPCS: 99284

== ENCOUNTER 2023-05-05 11:51 | Outpatient (REF) | payer MEDICARE, OTHER, SELFPAY ==
[2023-05-05 14:13] LABS: Anion Gap 11 (12-20); Blood Urea Nitrogen 14 mg/dL (9-16); Calcium 9.8 mg/dL (8.4-10.2); Carbon Dioxide 26 mmol/L (22-29); Chloride 109 mmol/L (96-108); Cholesterol 162 mg/dL (<200); Estimated Glomerular Filt Rate > 60; Glucose Random 107 mg/dL (60-115); HDL Cholesterol 49 mg/dL (>40); LDL Cholesterol Calculated 92 mg/dL (<100); Potassium 4.8 mmol/L (3.3-5.1); Sodium 141 mmol/L (135-145); Triglycerides 109 mg/dL (<150)
[2023-05-06 04:18] LABS: HIV AB/AG Nonreactive (Nonreactive); HIV Num 1 0.05 S/CO (0.00-0.99)
[2023-05-06 04:22] LABS: ~Hepatitis C Antibody Nonreactive (Nonreactive)
== END 2023-05-05 11:52 | disposition home or self-care (01) ==
LOC: HO.HHCL 11:51
PROVIDERS: Visit Provider Nurse Practitioner Primary Care
DX: Z00.00 Encounter for general adult medical examination without abnormal findings (principal); Z11.4 Encounter for screening for human immunodeficiency virus [HIV]; Z11.3 Encounter for screening for infections with a predominantly sexual mode of transmission; I10 Essential (primary) hypertension
CPT/HCPCS: 36415; 80048; 80061; 86803; 87389

== ENCOUNTER 2024-08-13 13:28 | Emergency (ER) | payer MEDICARE, OTHER, SELFPAY ==
--- NOTE | ~2024-08-13 | XR_ITS ---
EXAMINATION: XR CHEST CLINICAL INFORMATION: chest pain, SOB COMPARISON: Prior chest November 2017 TECHNIQUE: 2 views of the chest were obtained. FINDINGS: No significant abnormality is noted involving the heart, lungs, mediastinum, bony thorax or soft tissues. XR/XR chest 2V IMPRESSION: Unremarkable examination. Electronically signed by: Federico Costello MD 08/13/2024 05:29 PM [facility] [place]
--- NOTE | 2024-08-13 13:38 | ECG_ITS ---
Test Reason : CHEST PAIN Blood Pressure : / mmHG Vent. Rate : 069 BPM Atrial Rate : 069 BPM P-R Int : 166 ms QRS Dur : 082 ms QT Int : 388 ms P-R-T Axes : 054 -43 015 degrees QTc Int : 415 ms Normal sinus rhythm Left axis deviation Minimal voltage criteria for LVH, may be normal variant ( R in aVL ) Possible Anterior infarct , age undetermined Abnormal ECG When compared with ECG of 24-JUN-2019 21:21, No significant change was found Referred By: Renetta Spicer Electronically Signed By:RESHMA SAVAGE MD
--- NOTE | 2024-08-13 13:58 | ED_ITS ---
HPI - General Adult General Chief complaint: Chest Pain Stated complaint: marine CASTILLO Time Seen by Provider: 08/13/24 16:06 Source: patient Limitations: no limitations History of Present Illness ED Provider: Vera sams PA-C HPI narrative: 58-year-old male with a history of hypertension, hyperlipidemia and prior tobacco abuse presents with multiple complaints. Patient states he has had pustules over his upper extremities lower extremities and scattered lesions over the torso for a week. They have been waxing and waning, they are pruritic and also uncomfortable at the same time. No one else has a same lesions. Patient has not had new medication, food or body products. Patient also complains of left anterior chest discomfort that began this morning. Pain worse with movement and palpation of chest wall. Patient can not recall if he performed any activity that could have precipitated his discomfort. Denies shortness of breath diaphoresis or nausea. Patient denies recent cough or cold symptoms he has not had fevers. Related Data Home Medications ?Medication ?Instructions ?Recorded ?Confirmed aspirin 81 mg tablet,delayed 81 mg PO DAILY 09/04/20 09/04/20 release (Adult Low Dose Aspirin) atorvastatin 10 mg tablet 10 mg PO BEDTIME 09/04/20 09/04/20 propranolol 120 mg capsule,24 120 mg PO BEDTIME 09/04/20 09/04/20 hr,extended release Previous Rx's ?Medication ?Instructions ?Recorded methylcellulose (laxative) 500 mg 500 mg PO DAILY #30 tabs 09/04/20 tablet (Citrucel) naloxone 4 mg/actuation nasal 4 mg intranasal Q2M PRN opioid 08/03/21 spray (Narcan) overdose #2 ea doxycycline hyclate 100 mg capsule 100 mg PO BID #14 caps 08/13/24 methocarbamol 750 mg tablet 750 mg PO BEDTIME #7 tabs 08/13/24 Allergies Allergy/AdvReac Type Severity Reaction Status Date / Time No Known Allergies Allergy Verified 08/13/24 14:07 Review of Systems 2 Review of Systems: Yes all other systems are reviewed and are negative Constitutional: Constitutional: Denies fatigue and Denies fever(s) Cardiovascular: Cardiovascular: Reports chest pain and Denies dyspnea Respiratory: Respiratory: Denies cough and Denies dyspnea Gastrointestinal: Gastrointestinal: Denies abdominal pain and Denies nausea Integumentary/Breasts: Skin/Breast: Reports pruritus, Reports lesions and Reports rash Endocrine: Endocrine: Denies fatigue PMFSH Past Medical History Attestation statement: The following information was validated with the patient. Medical History EtOH dependence Heroin addiction Hypertension Surgical History History of back surgery (~01/2013) Hx of colonoscopy (~2010) Hx of rotator cuff surgery (~08/2013) Family History Family History Father Heart disease Myocardial infarct Mother Stomach cancer Social History Social History Alcohol intake: current Alcohol intake frequency: 3 or more drinks per day Alcohol type: beer Patient Tobacco Use Status: Never used Tobacco Substance Use Type: Heroin and Marijuana Advance Directives: No Advance Directives Information Provided: Yes Do you have a plan to hurt others: No Plan Current occupational status: disabled Current occupation: rt handed Physical Exam ED Vital Signs: Vital Signs - 24 hr 08/13/24 14:06 08/13/24 16:15 08/13/24 18:16 Temperature 98.8 F 98.2 F 98.1 F Pulse Rate 72 61 67 Respiratory Rate 16 20 14 Blood Pressure 160/87 H 133/88 130/90 H Pulse Oximetry 97 96 99 Oxygen Delivery Method Room Air Room Air Room Air BMI result Body Mass Index 25.8 Const Other: Alert, well-appearing Orientation/consciousness: patient oriented x3 Chest Other: Pain reproducible with palpation of left anterior chest wall Resp Other: Nonlabored respiration Cardio Other: Normal peripheral perfusion Skin Other: Scattered pustules noted over upper extremities, scattered over posterior torso and lower extremities, they are in varying stages. Some have a tiny discrete pustule some are scabbed over some are excoriated from scratching. They are raised, with overlying erythema. Neuro General: patient oriented x3, gait normal, no focal motor deficits and CN's II- XI intact bilaterally Psych Other: Calm cooperative Course Course Course Narrative: This is an RME: Additional HPI, ROS, PE not included below will be deferred to primary provider. RME assessment and note performed by: Renetta Spicer, PA-C This is a 64-twsk-duh-male, with a hx of hypertension on propranolol who presents to the ER with complaints of itchy rash throughout his body x 1 week, worsening this morning. States that he has had chest pain and SOB. Reports some numbness and tingling down his arms. Reports that he drank a 12 pack of beer last night. Plan: Labs, ekg, cxr Medications Administered Discontinued Medications Generic Name Dose Route Start Last Admin Trade Name Salud PRN Reason Stop Dose Admin Doxycycline Monohydrate 100 mg 08/13/24 17:42 08/13/24 17:54 Doxycycline Monohydrate 100 Mg Capsule PO 08/13/24 17:43 100 mg ONCE ONE Administration Loratadine 10 mg 08/13/24 17:42 08/13/24 17:54 Loratadine 10 Mg Tablet PO 08/13/24 17:43 10 mg ONCE ONE Administration Medical Decision Making Medical Decision Making MDM Narrative: 58-year-old male with a history of hypertension, hyperlipidemia and prior tobacco abuse presents with multiple complaints. Patient states he has had pustules over his upper extremities lower extremities and scattered lesions over the torso for a week. They have been waxing and waning, they are pruritic and also uncomfortable at the same time. No one else has a same lesions. Patient has not had new medication, food or body products. Patient also complains of left anterior chest discomfort that began this morning. Pain worse with movement and palpation of chest wall. Patient can not recall if he performed any activity that could have precipitated his discomfort. Denies shortness of breath diaphoresis or nausea. Patient denies recent cough or cold symptoms he has not had fevers. Problem: Age, hypertension, hyperlipidemia and tobacco abuse History: Per patient I have considered the following differential diagnoses: ACS, costochondritis, chest wall strain, folliculitis, cellulitis, purulent cellulitis, MRSA, contact dermatitis, urticaria, zoster Plan: In regard to the chest discomfort, his exam was consistent with chest wall strain. ACS was considered, the patient has multiple risk factors for coronary artery disease. Screening labs including cardiac enzymes, EKG and chest x-ray were obtained. Thought about costochondritis, however he has not had preceding viral syndrome. In regard to the skin lesions, they are consistent with folliculitis. The patient has never had a rash such as this, doubtful it is MRSA. We will cover with doxycycline. I have independently reviewed the following tests: Labs: No leukocytosis, not anemic, no electrolyte abnormality, troponin x2 are negative EKG: Normal sinus rhythm, rate of 64, it is no ischemic changes no ectopy Chest x-ray: XR/XR chest 2V IMPRESSION: Unremarkable examination. Lab Data 08/13/24 13:55 08/13/24 13:55 Labs: Lab Results 08/13/24 08/13/24 Range/Units 13:55 16:36 WBC 7.8 (4.8-10.8) X10*3/uL RBC 4.91 (4.60-5.80) X10*6/uL Hgb 15.4 (14.0-18.0) g/dl Hct 44.0 (42.0-52.0) % MCV 89.6 (80.0-98.0) fL MCH 31.4 (27.0-33.0) pg MCHC 35.0 (31.0-36.0) g/dl RDW 12.4 (11.0-16.0) % Plt Count 215 (160-400) X10*3/uL MPV 10.2 (9.4-12.4) fL Immature Gran % (Auto) 0.3 (0.0-0.4) % Neut % (Auto) 65.6 (45-73) % Lymph % (Auto) 19.1 L (20-40) % Tyler % (Auto) 8.7 (2-11) % Eos % (Auto) 5.4 H (0-4) % Baso % (Auto) 0.9 (0-2) % Lymph # (Auto) 1.5 (1.2-4.9) X10*3/uL Tyler # (Auto) 0.7 (0.1-1.2) X10*3/uL Eos # (Auto) 0.4 (0.0-0.4) X10*3/uL Baso # (Auto) 0.1 (0.0-0.2) X10*3/uL Abs Immat Gran (auto) 0.02 (0.00-0.03) X10*3/uL Absolute Neuts (auto) 5.2 (2.0-8.3) x10*3/uL Absolute Nucleated RBC 0.000 (0.0-0.012) X10*3/uL Nucleated RBC % (auto) 0.0 (0.0-0.2) /100WBC APTT 24.6 L (26.0-36.8) SEC Sodium 141 (135-145) mmol/L Potassium 4.5 (3.3-5.1) mmol/L Chloride 109 H (96-108) mmol/L Carbon Dioxide 24 (22-29) mmol/L Anion Gap 13 (12-20) BUN 10 (9-16) mg/dL Creatinine 0.95 (0.5-1.4) mg/dL Estim Creat Clear Calc 79.2 Estimated GFR > 60 Random Glucose 105 (60-115) mg/dL Calcium 8.7 D (8.4-10.2) mg/dL Magnesium 2.3 (1.6-2.6) mg/dL Total Bilirubin 0.5 (0.0-1.0) mg/dL Direct Bilirubin 0.2 (0.0-0.5) mg/dL AST 50 H (5-37) U/L ALT 65 H (0-40) U/L Alkaline Phosphatase 57 (39-117) U/L Troponin I High Sens < 2.7 < 2.7 (<3.5-35.0) ng/L B-Natriuretic Peptide 25 (<100) pg/mL Total Protein 7.6 (6.5-8.0) g/dL Albumin 4.4 (3.5-5.0) g/dL Lipase 62 (8-78) U/L Ethyl Alcohol 19 mg/dL Discharge Plan Discharge Clinical Impression: Folliculitis, Chest wall pain Patient Disposition: Home, Self-Care Instructions: Folliculitis (ED), Chest Wall Pain (ED) Additional Instructions: In regard to your chest pain, it is consistent with chest wall pain. All of your screening labs including 2 cardiac enzymes were normal. There were no concerning changes on her EKG in your chest x-ray was clear. You can continue to use bhnf-yhb-psclssj ibuprofen 600 mg taken every 6 hours with food, for your chest wall discomfort. I am giving you a prescription for a muscle relaxant that you can use at night to help you sleep, it is called methocarbamol. It will cause drowsiness, do not drive or operate machinery while taking this medication. In regard to the skin lesions, this is consistent with folliculitis. See home care instructions. You can wash with an lszr-pyy-qcsslxa tea tree body wash the you can purchase at any store. I am place you on an antibiotic, called doxycycline, take it as directed. In regard to the associated itching, you can purchase mgag-xop-nueepeh Zyrtec, and use the product every 12 hours. Follow up with your primary care provider as needed. Prescriptions: New doxycycline hyclate 100 mg capsule 100 mg PO BID Qty: 14 0RF methocarbamol 750 mg tablet 750 mg PO BEDTIME Qty: 7 0RF No Action Narcan 4 mg/actuation spray,non-aerosol 4 mg intranasal Q2M PRN (Reason: opioid overdose) Qty: 2 2RF Rx Instructions: spray 1 dose into ONE nostril; alternate nostrils w each dose until help arrives propranolol 120 mg capsule,extended release 24 hr 120 mg PO BEDTIME atorvastatin 10 mg tablet 10 mg PO BEDTIME aspirin [Adult Low Dose Aspirin] 81 mg tablet,delayed release (DR/EC) 81 mg PO DAILY Citrucel 500 mg tablet 500 mg PO DAILY Qty: 30 2RF Print Language: Salvadorean
[2024-08-13 14:00] LABS: MANUAL DIFF FLAG NO
[2024-08-13 14:01] LABS: Basophils Absolute Auto 0.1 X10*3/uL (0.0-0.2); Basophils Percent Auto 0.9 % (0-2); Eosinophils Absolute Auto 0.4 X10*3/uL (0.0-0.4); Eosinophils Percent Auto 5.4 % (0-4); Hemoglobin 15.4 g/dl (14.0-18.0); Imm Gran Abs Auto 0.02 X10*3/uL (0.00-0.03); Imm Gran Pct Auto 0.3 % (0.0-0.4); Lymphocytes Absolute Auto 1.5 X10*3/uL (1.2-4.9); Lymphocytes Percent Auto 19.1 % (20-40); Mean Corpuscular Hemoglobin 31.4 pg (27.0-33.0); Mean Corpuscular Volume 89.6 fL (80.0-98.0); Mean Platelet Volume 10.2 fL (9.4-12.4); Monocytes Absolute Auto 0.7 X10*3/uL (0.1-1.2); Monocytes Percent Auto 8.7 % (2-11); Neutrophils Absolute Auto 5.2 x10*3/uL (2.0-8.3); Neutrophils Percent Auto 65.6 % (45-73); Platelet Count 215 X10*3/uL (160-400); Red Blood Count 4.91 X10*6/uL (4.60-5.80); Red Cell Distribution Width 12.4 % (11.0-16.0); White Blood Count 7.8 X10*3/uL (4.8-10.8)
[2024-08-13 14:06] VITALS: BP 160/87; PULSE 72; RESP 16; TEMP 37.1; O2SAT 97; BMI 25.8
[2024-08-13 14:09] LABS: Partial Thromboplastin Time 24.6 SEC (26.0-36.8)
[2024-08-13 14:25] LABS: B Type Natriuretic Peptide 25 pg/mL (<100)
[2024-08-13 14:41] LABS: Albumin Level 4.4 g/dL (3.5-5.0); Alkaline Phosphatase 57 U/L (39-117); Anion Gap 13 (12-20); Aspartate Amino Transferase 50 U/L (5-37); Bilirubin Direct 0.2 mg/dL (0.0-0.5); Bilirubin Total 0.5 mg/dL (0.0-1.0); Blood Urea Nitrogen 10 mg/dL (9-16); Calcium 8.7 mg/dL (8.4-10.2); Carbon Dioxide 24 mmol/L (22-29); Chloride 109 mmol/L (96-108); Creatinine Clr Calc Pharmacy 79.2; Estimated Glomerular Filt Rate > 60; Glucose Random 105 mg/dL (60-115); Lipase 62 U/L (8-78); Magnesium 2.3 mg/dL (1.6-2.6); Potassium 4.5 mmol/L (3.3-5.1); Sodium 141 mmol/L (135-145); Total Protein 7.6 g/dL (6.5-8.0); Troponin-I High Sensitivity < 2.7 ng/L (<3.5-35.0)
[2024-08-13 14:54] LABS: Alanine Aminotransferase 65 U/L (0-40)
--- NOTE | 2024-08-13 15:18 | ECG_ITS ---
Test Reason : CP Blood Pressure : / mmHG Vent. Rate : 064 BPM Atrial Rate : 064 BPM P-R Int : 168 ms QRS Dur : 084 ms QT Int : 402 ms P-R-T Axes : 049 -41 007 degrees QTc Int : 414 ms Normal sinus rhythm Left axis deviation Minimal voltage criteria for LVH, may be normal variant ( R in aVL ) Abnormal ECG When compared with ECG of 13-AUG-2024 13:45, No significant change was found Referred By: Renetta Spicer Electronically Signed By:RESHMA SAVAGE MD
[2024-08-13 15:43] LABS: Ethanol 19 mg/dL
[2024-08-13 16:15] VITALS: BP 133/88; PULSE 61; RESP 20; TEMP 36.8; O2SAT 96
[2024-08-13 17:04] LABS: Troponin-I High Sensitivity < 2.7 ng/L (<3.5-35.0)
[2024-08-13] MEDS: Doxycycline Monohydrate 100 MG CAPSULE PO (17:54)
[2024-08-13] MEDS: Loratadine 10 MG TABLET PO (17:54)
[2024-08-13 18:16] VITALS: BP 130/90; PULSE 67; RESP 14; TEMP 36.7; O2SAT 99
[2024-08-13 19:13] VITALS: BP 130/90; PULSE 67; RESP 14; TEMP 36.7; O2SAT 99
== END 2024-08-13 19:14 | disposition home or self-care (01) ==
PROVIDERS: Physician Assistant Medical; Emergency Provider Emergency Medicine; PCP Nurse Practitioner Primary Care
DX: L73.9 Follicular disorder, unspecified (principal); R07.89 Other chest pain; I10 Essential (primary) hypertension; E78.5 Hyperlipidemia, unspecified; Z79.02 Long term (current) use of antithrombotics/antiplatelets; Z79.899 Other long term (current) drug therapy
CPT/HCPCS: 36415; 71046; 80048; 80076; 80307; 83690; 83735; 83880; 84484; 85025; 85730; 93005; 99284

== ENCOUNTER → 2024-08-13 13:38 | Outpatient (BNV) | payer MEDICARE, SELFPAY | PROVIDERS: Emergency Provider Emergency Medicine; PCP Nurse Practitioner Primary Care; Visit Provider Internal Medicine Cardiovascular Disease | DX: R07.9 Chest pain, unspecified (principal); R94.31 Abnormal electrocardiogram [ECG] [EKG] | CPT/HCPCS: 93010 ==

== ENCOUNTER 2024-11-26 06:51 | Emergency (ER) | payer MEDICARE, OTHER, SELFPAY ==
--- NOTE | ~2024-11-26 | XR_ITS ---
CLINICAL HISTORY: pain 3 view right shoulder Comparison: None Findings: No fractures or dislocations. No significant arthritic change. No erosions. No radiopaque foreign body. IMPRESSION: 1. No acute findings This document has been electronically signed by: Ronnie Hernandez MD on 11/26/2024 09:47:01
[2024-11-26 07:10] VITALS: BP 129/88; PULSE 60; RESP 18; TEMP 36.3; O2SAT 96; BMI 29.0
--- NOTE | 2024-11-26 08:53 | ED_ITS ---
HPI - Extremity Problem General Chief complaint: Extremity Injury, Upper Stated complaint: rt arm sore/unable to raise Time Seen by Provider: 11/26/24 08:48 Source: patient Mode of arrival: ambulatory Limitations: no limitations History of Present Illness ED Provider: HPI Narrative: Patient noticed atraumatic pain in the right shoulder for last 2 days does have history of the rotator cuff tendinitis status post repair but did not have any pain in the right shoulder does not remember any injury woke up noticed the pain which is getting worse now Related Data Home Medications ?Medication ?Instructions ?Recorded ?Confirmed aspirin 81 mg tablet,delayed 81 mg PO DAILY 09/04/20 09/04/20 release (Adult Low Dose Aspirin) atorvastatin 10 mg tablet 10 mg PO BEDTIME 09/04/20 09/04/20 propranolol 120 mg capsule,24 120 mg PO BEDTIME 09/04/20 09/04/20 hr,extended release Previous Rx's ?Medication ?Instructions ?Recorded methylcellulose (laxative) 500 mg 500 mg PO DAILY #30 tabs 09/04/20 tablet (Citrucel) naloxone 4 mg/actuation nasal 4 mg intranasal Q2M PRN opioid 08/03/21 spray (Narcan) overdose #2 ea doxycycline hyclate 100 mg capsule 100 mg PO BID #14 caps 08/13/24 methocarbamol 750 mg tablet 750 mg PO BEDTIME #7 tabs 08/13/24 Allergies Allergy/AdvReac Type Severity Reaction Status Date / Time No Known Allergies Allergy Verified 11/26/24 07:11 Review of Systems Review of Systems: Yes all other systems are reviewed and are negative PMFSH Past Medical History Medical History Hypertension EtOH dependence Heroin addiction Surgical History Hx of colonoscopy (~2010) History of back surgery (~01/2013) Hx of rotator cuff surgery (~08/2013) Family History Family History Father Heart disease Myocardial infarct Mother Stomach cancer Social History Social History Alcohol intake: current Alcohol intake frequency: 3 or more drinks per day Alcohol type: beer Patient Tobacco Use Status: Never used Tobacco Substance Use Type: Heroin and Marijuana Current occupational status: disabled Current occupation: rt handed Physical Exam Vital Signs: Vital Signs: Last Vital Signs Temp 98.2 F 11/26/24 10:42 Pulse 80 11/26/24 10:42 Resp 18 11/26/24 10:42 BP 118/58 L 11/26/24 10:42 Pulse Ox 99 11/26/24 10:42 O2 Del Method Room Air 11/26/24 10:42 BMI result Body Mass Index 29.0 Appearance: Alert. Oriented X3. No acute distress. Eyes: no pallor or icterus ENT: Pharynx normal. Oral Mucosa moist Neck: Normal inspection. Neck supple. CVS: Normal heart rate and rhythm. Pulses normal. Respiratory: No respiratory distress. Equal air entry bilateral, no wheezing/rales/rhonchi Abd: soft, not tender Skin: Skin warm and dry. Normal skin color. Normal skin turgor. Extremities: Right shoulder diffuse tenderness in the rotator cuff insertions with increased pain on external rotation likely teres minor injury Neuro: Oriented X 3. Medications Administered Discontinued Medications Generic Name Dose Route Start Last Admin Trade Name Freq PRN Reason Stop Dose Admin Lidocaine HCl 10 ml 11/26/24 10:09 11/26/24 10:19 Lidocaine Hcl 1 % Mpf 5 Ml Vial INFILTRATI 11/26/24 10:10 10 ml ONCE ONE Administration Medical Decision Making Medical Decision Making [facility] Narrative: Patient with right rotator cuff tendinitis pain significantly improved after lidocaine injection in the right shoulder joint patient almost pain-free will discharge patient home advised to follow with orthopedic rest of the right shoulder Independent Interpretation I performed an independent interpretation of an: Plain X-Ray Interpretation: NAD Radiology Impression Discussion of test interpretation with radiology: I have reviewed the radiologist's reading. Procedures Joint Aspiration/Injection Joint Asp./Inject. 1: Time Out Performed: Yes Side of body: right Joint Aspirated: shoulder Skin Prep: Povidone-Iodine1% Local Anesthetic: lidocaine 1% Amount of anesthesia used (mL): 10 Needle Size Used: 20G Discharge Plan Discharge Clinical Impression: Right rotator cuff tendinitis Patient Disposition: Home, Self-Care Instructions: Rotator Cuff Tendinitis (ED) Additional Instructions: Care as advised Rest your right shoulder avoid lifting the right arm above head Follow up with your PCP /orthopedic if not better for further evaluation Prescriptions: No Action Narcan 4 mg/actuation spray,non-aerosol 4 mg intranasal Q2M PRN (Reason: opioid overdose) Qty: 2 2RF Rx Instructions: spray 1 dose into ONE nostril; alternate nostrils w each dose until help arrives doxycycline hyclate 100 mg capsule 100 mg PO BID Qty: 14 0RF methocarbamol 750 mg tablet 750 mg PO BEDTIME Qty: 7 0RF propranolol 120 mg capsule,extended release 24 hr 120 mg PO BEDTIME atorvastatin 10 mg tablet 10 mg PO BEDTIME aspirin [Adult Low Dose Aspirin] 81 mg tablet,delayed release (DR/EC) 81 mg PO DAILY Citrucel 500 mg tablet 500 mg PO DAILY Qty: 30 2RF Referrals: Johny Benoit MD [Physician] - 2 weeks Discharge Date/Time: 11/26/24 10:45 Print Language: Vietnamese
[2024-11-26] MEDS: Lidocaine HCl 1 % MPF 5 ML VIAL 10 ML INFILTRATI (10:19)
[2024-11-26 10:42] VITALS: BP 118/58; PULSE 80; RESP 18; TEMP 36.8; O2SAT 99
== END 2024-11-26 10:45 | disposition home or self-care (01) ==
PROVIDERS: Emergency Provider Internal Medicine; PCP Nurse Practitioner Primary Care
DX: M75.101 Unspecified rotator cuff tear or rupture of right shoulder, not specified as traumatic (principal); M79.601 Pain in right arm; Z79.899 Other long term (current) drug therapy
CPT/HCPCS: 20610; 73030; 99283; 99284; J2003

== ENCOUNTER → 2024-11-26 09:25 | Outpatient (BNV) | payer MEDICARE, SELFPAY | PROVIDERS: Emergency Provider Internal Medicine; PCP Nurse Practitioner Primary Care; Visit Provider Radiology Diagnostic Radiology | DX: M25.511 Pain in right shoulder (principal) | CPT/HCPCS: 73030 ==

== ENCOUNTER 2024-12-21 09:54 | Outpatient (AMB) | payer MEDICARE, SELFPAY ==
--- NOTE | 2024-12-21 10:02 | A.OFFVIS_ITS ---
Intake Visit Reasons: ED- right shoulder pain, [facility] [place]/26/24 Intake Note: See is a 59 year old right hand dominant male who presents today as a new patient for evaluation of right shoulder pain after presenting to [facility] on 11/26/24. At the ED, the patient was diagnosed with right rotator cuff tendinitis pain. He was given a cortisone injection which provided about a week of relief. Patient reports that he was throwing a ball with his dog when he felt a pop. His pain had gradually gotten worse which prompted a visit to the ER. Currently his pain is mostly in his shoulder however certain arm movements causes pain to travel down his arm. Limited ROM affecting his ADL. He has intermittent numbness and tingling in his fingers. Finds very little relief with tylenol and Motrin. Allergies No Known Allergies Allergy (Verified 12/21/24 10:06) [facility]- right shoulder pain, [facility] 11/26/24: Details: Mr. Quiroga is a 59-year-old foxsl-fbwj-zktknjsk male who presents to the office today for evaluation of right shoulder and upper extremity pain. He presented to the emergency department on 11/26/2024 after he was throwing a ball with his dog and felt a pop in the right shoulder. He was given an injection of lidocaine into the shoulder by the emergency department which gave him about 1 week of relief. He reports that he has had pain that travels from the neck down the entire right upper extremity. His pain does increase when he is turning his head to the right side. He reports intermittent numbness and tingling into the right fingers. [facility] Medical History (Updated 12/21/24 @ 10:42 by Yelena Lozoya PA-C) Hypertension EtOH dependence Heroin addiction Surgical History (Updated 12/21/24 @ 10:08 by HOME Neri) Hx of colonoscopy (~2010) History of back surgery (~01/2013) Hx of rotator cuff surgery (~08/2013) Family History Father Heart disease Myocardial infarct Mother Stomach cancer Social History Alcohol intake: current Alcohol intake frequency: 3 or more drinks per day Alcohol type: beer Patient Tobacco Use Status: Never used Tobacco Substance Use Type: Heroin and Marijuana Current occupational status: disabled Current occupation: rt handed Review of Systems Const All systems reviewed & are unremarkable except as noted in HPI and below Physical Exam Const General: cooperative, healthy appearing and no acute distress Resp Effort & Inspection: normal respiratory effort and able to speak in complete sentences Cardio Rate: regular rate Peripheral pulses: Peripheral pulses 2+ throughout Skin Lesions: no lesions Rashes: no rashes Extrem Other: Right shoulder: Forward flexion to 90 degrees. Abduction to 90 degrees. Pain with cross-body reach. 4/5 strength with empty can. Negative drop arm. NVI. Office Procedures AMB Joint Injection/Aspiration Joint Injection/Aspiration Primary Site: right shoulder Prep: site was prepped using aseptic technique, ethochloride spray was applied and injection warnings given Injected: 80 mg of, DepoMedrol, with 8 mL of (2% plain lidocaine) and in the subcromial space Approach Used: posterolateral Procedure: The patient tolerated the procedure well, but had some pain with the injection and there was some relief with the local anesthesia Coding 41572 - Large joint Procedure code (CPT) selection complete Assessment & Plan Assessment & Plan (1) Cervical radiculopathy: Code(s): M54.12 - Radiculopathy, cervical region Category: Medical Plan Mr. Quiroga is a 59-year-old algmb-nrsq-frqumvaz male who presents to the office today for evaluation of right shoulder and upper extremity pain. He presented to the emergency department on 11/26/2024 after he was throwing a ball with his dog and felt a pop in the right shoulder. He was given an injection of lidocaine into the shoulder by the emergency department which gave him about 1 week of relief. He reports that he has had pain that travels from the neck down the entire right upper extremity. His pain does increase when he is turning his head to the right side. He reports intermittent numbness and tingling into the right fingers. The patient was offered a cortisone injection in the right shoulder with 80 mg of DepoMedrol. The patient was explained the risks, benefits, and alternatives to receiving this injection. After receiving consent for the injection, the patient had the procedure done while in the office today. The patient tolerated the procedure well with no complications. Additionally, I have placed an order for an EMG study to evaluate for possible nerve impingement in the right upper extremity. I have also placed an order for physical therapy for the right upper extremity. If the patient continues to have pain after 6 weeks of physical therapy the next step would be to order an MRI to evaluate the integrity of the right shoulder and surrounding structures. Lastly, due to the patient's symptoms of possible C-spine involvement I have also placed a referral to Dr. Arrieta for her recommendations. Follow-up will be after EMG and physical therapy has been completed, or sooner if needed Orders: Orders NE electromyogram (EMG) Today M54.12 - Radiculopathy, cervical region PT Evaluation and Treatment Today M75.101 - Unspecified rotator cuff tear or rupture of right shoulder, not specified as traumatic NE nerve conduction velocity Today M54.12 - Radiculopathy, cervical region Coding Level of Care Code New Pt Level 4 (07597) Diagnoses Cervical radiculopathy M54.12 CPT Codes Coding - 72990 Large joint: 94159 - Large joint ([id number])
--- OUTSIDE RECORDS SUMMARY | 2024-12-21 11:22 | XMS_ITS | Clinical Summary ---
Author Organization [facility] Address [address] [place] [address] Phone Care Team Providers Care Partnership Development Manager Name Role Phone Gunjan Wright NP Primary Care Provider [phone] Allergies No known active allergies Medications amoxicillin-cla vulanate (AUGMENTIN) 875-125 mg per tablet Take 1 tablet by mouth every 12 (twelve) hours for 7 days. 14 tablet 11/21/2024 5 Active Problems No known active problems Encounters Date Type Department Care Team Description 11/20/2024 9:03 PM EDT - 11/21/2024 2:48 AM EDT Emergency [facility] Emergency [address] [place] [address] Tab Lynch MD Chest pain, unspecified type (Primary Dx); Gastrointestinal hemorrhage, unspecified gastrointestinal hemorrhage type; Precordial pain; Colitis; Pulmonary nodule Discharge Disposition: Home or Self Care from Last 3 Months Surgical History Surgery Date Site/Laterality Comments BACK SURGERY PROCEDURE: HISTORICAL BACK SURGERY; COMMENT: Dr. Barton in 2004 Medical History Medical History Date Comments Chronic back pain DX:Chronic kathie k pain HTN (hypertension) Family History Medical History Relation Name Comments Heart attack Father at age 54. Other: stomach cancer Mother , unce rtain of at age 48 Relation Name Status Comments Father Mother Social History Tobacco Use Types Packs/Day Years Used Date Smoking Tobacco: Former Cigarettes Passive Smoke Exposure: Yes Smokeless Tobacco: Never Tobacco Cessation:Counseling Given: Not Answered Alcohol Use Standard Drinks/Week Comments Yes 0 (1 standard drink = 0.6 oz pur e alcohol) Sex and Gender Information Value Date Recorded Sex Assigned at Male 11/21/2024 1:39 AM EDT Legal Sex Male 4:09 PM EST Gender Identity Male 11/21/2024 1:39 AM EDT Sexual Orientation Choose not to disclose 2024 1:39 AM EDT Obstetrics History Last Filed Vital Signs Vital Sign Reading Time Taken Comments Blood Pressure 139/97 11/21/2024 12:35 AM EDT Pulse 63 11/21/2024 12:35 AM EDT Temperature 36.6 ??C (97.9 ??F) 11/21/2024 12:35 AM E DT Respiratory Rate 15 11/21/2024 12:35 AM EDT Oxygen Saturation 98% 11/21/2024 12:35 AM EDT Inhaled Oxygen Concentration - - Weight 84.8 kg (187 lb) 11/20/2024 5:02 PM EDT Height 170.2 cm (5' 7 ) 11/20/2024 5:02 PM EDT Body Mass Index 29.29 11/20/2024 5:02 PM EDT Plan of Treatment Health Maintenance Due Date Last Done Comments Hepatitis A Vaccines (1 of 2 - Risk 2-dose series) 1984 Pneumococcal Vaccine: 50+ Years (2 of 2 - PCV) 11/11/2015 05/21/2012 COVID-19 Vaccine ( season) 2024 04/07/2021, 03/10/2021 Colorectal Cancer Screening: Colonoscopy 11/20/2024 Depression Screening 11/20/2024 05/05/2023 HIV Screening 11/20/2024 Medicare Annual Wellness Visit 11/20/2024 Social Influencers of Health Screening 11/20/2024 Influenza Vaccine (Season Ended) 2025 08/06/2020, 08/03/2019, 06/18/2017, Additional history exists Hypertension/CHF/CAD Annual BMP Blood Test 11/20/2025 11/20/2024 Cholesterol Screening (Lipid Panel) 05/05/2028 05/05/2023 DTaP,Tdap,and Td Vaccines (4 - Td or Tdap) 08/03/2029 08/03/2019, 03/11/2013, 06/12/2006 RSV Immunization Adult Patients (1 - 1-dose 75+ series) 2040 Pneumococcal Vaccine: Pediatrics (0 to 5 Years) and At-Risk Patients (6 to 64 Years) Aged Out 05/21/2012 No longer eligible based on patient's age to complete this topic Hepatitis B Vaccines Completed 01/26/2019, 08/21/2017, 07/17/2017 Zoster Vaccines Completed 10/08/2020, 08/06/2020 Hepatitis C Screening Completed 05/05/2023 HIB Vaccines Aged Out No longer eligi ble based on patient's age to complete this topic HPV Vaccines Aged Out No longer eligi ble based on patient's age to complete this topic IPV Vaccines Aged Out No longer eligi ble based on patient's age to complete this topic MMR Vaccines Aged Out No longer eligi ble based on patient's age to complete this topic Meningococcal ACWY Vaccine Aged Out N o longer eligible based on patient's age to complete this topic Meningococcal B Vaccine Aged Out No l onger eligible based on patient's age to complete this topic RSV Immunization Patients Under 20 months Aged Out No longer eligible based on patient's age to complete this topic Varicella Vaccines Aged Out No longer eligible based on patient's age to complete this topic Procedures Procedure Name Priority Date/Time Associated Diagnosis Comments ECG ANNOTATED 11/22/2024 CT ANGIO CHEST WO AND/OR W CONTRAST STAT 11/21/2024 12:30 AM EDT Chest pain, unspecified type Gastrointestinal hemorrhage, unspecified gastrointestinal hemorrhage type CT ABDOMEN PELVIS W CONTRAST STAT 11/21/2024 12:30 AM EDT XR CHEST 2 VIEWS STAT 11/20/2024 8:26 PM EDT ECG 12-LEAD STAT 11/20/2024 8:16 PM EDT TROPONIN I HIGH SENSITIVITY STAT 11/20/2024 8:12 PM EDT ACTIVATED PARTIAL THROMBOPLASTIN TIME STAT 11/20/2024 5:17 PM EDT PROTHROMBIN TIME WITH INR STAT 11/20/2024 5:17 PM EDT CBC WITH AUTO DIFFERENTIAL STAT 11/20/2024 5:17 PM EDT B-TYPE NATRIURETIC PEPTIDE STAT 11/20/2024 5:17 PM EDT MAGNESIUM STAT 11/20/2024 5:17 PM EDT LIPASE STAT 11/20/2024 5:17 PM EDT COMPREHENSIVE METABOLIC PANEL STAT 11/20/2024 5:17 PM EDT CBC AND DIFFERENTIAL STAT 11/20/2024 5:17 PM EDT TROPONIN I HIGH SENSITIVITY STAT 11/20/2024 5:17 PM EDT ECG 12-LEAD STAT 11/20/2024 4:57 PM EDT from Last 3 Months Results * ECG-Annotated (11/22/2024) us Provider Onbase MD ECG ORDERABLES Final Result * CT Abdomen Pelvis w Contrast (11/21/2024 12:30 AM EDT) Anatomical Region Laterality Modality Body Computed Tomogra phy 11/21/2024 1:58 AM EDT Impressions 11/21/2024 1:58 AM EDT 1. Possible mild right-sided colitis. 2. Additional findings described, please see above. This document has been electronically signed by: Reji Almanzar MD on 11/21/2024 01:58:01 Narrative 11/21/2024 1:58 AM EDT INDICATION: Abdominal pain, acute, nonlocalized CT abdomen and pelvis with contrast Comparison: None Findings: Please see same day CTA chest report. Hepatomegaly with steatosis. Bilateral perinephric stranding, nonspecific. No urolithiasis. Ascending colonic mural thickening with mucosal hyperemia, may reflect mild colitis. Fat containing umbilical hernia. Prominent inguinal nodes. Scattered colonic diverticulosis without diverticulitis or colitis. Normal appendix. Distended bladder with a small midline fluid-filled channel extending through the umbilicus, suggesting a urachal remnant, sinus or diverticulum for example amongst others. No significant regional stranding or collections. Osteopenia with diffuse multilevel spondylosis. Interbody disc spacer at L5-S1. Posterior spinal fusion at L4-L5. Diffuse atheromatous plaque disease throughout the aorta and branch vessels, without aneurysmal dilatation. Procedure Note Reji Almanzar MD - 11/21/2024 INDICATION: Abdominal pain, acute, nonlocalized CT abdomen and pelvis with contrast Comparison: None Findings: Please see same day CTA chest report. Hepatomegaly with steatosis. Bilateral perinephric stranding, nonspecific. No urolithiasis. Ascending colonic mural thickening with mucosal hyperemia, may reflect mild colitis. Fat containing umbilical hernia. Prominent inguinal nodes. Scattered colonic diverticulosis without diverticulitis or colitis. Normal appendix. Distended bladder with a small midline fluid-filled channel extending through the umbilicus, suggesting a urachal remnant, sinus ordiverticulum for example amongst others. No significant regional stranding or collections. Osteopenia with diffuse multilevel spondylosis. Interbody disc spacer at L5-S1. Posterior spinal fusion at L4-L5. Diffuse atheromatous plaque disease throughout the aorta and branch vessels, without aneurysmal dilatation. IMPRESSION: 1. Possible mild right-sided colitis. 2. Additional findings described, please see above. This document has been electronically signed by: Reji Almanzar MD on 11/21/2024 01:58:01 [facility] Magi Lynch MD IMJeri CT PROCEDURES Final Result * CT Angio Chest wo and/or w Contrast (11/21/2024 12:30 AM EDT) Anatomical Region Laterality Modality Body Computed Tomogra phy 11/21/2024 1:54 AM EDT Impressions 11/21/2024 1:54 AM EDT No evidence of PE. Additional findings as described. This document has been electronically signed by: Reji Almanzar MD on 11/21/2024 01:54:55 Narrative 11/21/2024 1:54 AM EDT INDICATION: multiple episodes of BRBPR with constant left sided CP SOB, N, dizziness CT angiography chest with contrast. 3D Postprocessing. Comparison: None Findings: The heart is normal size. RV/LV ratio is normal. The thoracic aorta is normal caliber. No acute pulmonary embolus. Diffuse esophageal mural thickening, nonspecific. Prominent mediastinal and right hilar nodes, may be reactive however are nonspecific. Gynecomastia. Atelectasis. Tiny bilateral pulmonary nodules measuring no more than 5 mm. Per Fleischner criteria: Low-risk patients: No routine follow-up required. High-risk patients: Optional CT at 12 months. No lobar consolidation. No significant pleural effusion or pneumothorax. Please see same day CT abdomen pelvis report. Osteopenia with diffuse multilevel spondylosis. Procedure Note Reji Almanzar MD - 11/21/2024 INDICATION: multiple episodes of BRBPR with constant left sided CP SOB, N, dizziness CT angiography chest with contrast. 3D Postprocessing. Comparison: None Findings: The heart is normal size. RV/LV ratio is normal. The thoracic aorta is normal caliber. No acute pulmonary embolus. Diffuse esophageal mural thickening, nonspecific. Prominent mediastinal and right hilar nodes, may be reactive however are nonspecific. Gynecomastia. Atelectasis. Tiny bilateral pulmonary nodules measuring no more than 5 mm. Per Fleischner criteria: Low-risk patients: No routine follow-up required. High-risk patients: Optional CT at 12 months. No lobar consolidation. No significant pleural effusion or pneumothorax. Please see same day CT abdomen pelvis report. Osteopenia with diffuse multilevel spondylosis. IMPRESSION: No evidence of PE. Additional findings as described. This document has been electronically signed by: Reji Almanzar MD on 11/21/2024 01:54:[address] PROCEDURES Final Result * XR Chest 2 Views (11/20/2024 8:26 PM EDT) Anatomical Region Laterality Modality Body Radiographic Perlita ging 11/21/2024 9:12 AM EDT Impressions 11/21/2024 9:13 AM EDT Impression: No active pulmonary process identified. Barrie LEO ([id number]) -------- FINAL REPORT -------- Dictated By: Brianna Ag Dictated Date: 11/21/2024 09:12 ET Assigned Physician: Brianna Ag Reviewed and Electronically Signed By: Brianna Ag Signed Date: 11/21/2024 09:13 ET Workstation ID: [id number] Transcribed By: Self Edit Transcribed Date: 11/21/2024 09:12 ET Narrative 11/21/2024 9:13 AM EDT History: Left-sided chest pain. Comparison: 03/17/13 Findings: PA and lateral views. The cardiac silhouette remains normal in size. Hilar contours and pulmonary vascularity appear normal. The lungs are clear. The costophrenic angles are sharp. There has been previous resection of the distal end of the left clavicle. Procedure Note Brianna Ag MD - 11/21/2024 History: Left-sided chest pain. Comparison: 03/17/13 Findings: PA and lateral views. The cardiac silhouette remains normal in size. Hilarcontours and pulmonary vascularity appear normal. The lungs are clear. Thecostophrenic angles are sharp. There has been previous resection of the distal end of the leftclavicle. IMPRESSION: Impression: No active pulmonary process identified. Telerad PA ([id number]) -------- FINAL REPORT -------- Dictated By: Brianna Ag Dictated Date: 11/21/2024 09:12 ET Assigned Physician: Brianna Ag Reviewed and Electronically Signed By: Brianna Ag Signed Date: 11/21/2024 09:13 ET Workstation ID: [id number] Transcribed By: Self Edit Transcribed Date: 11/21/2024 09:12 ET Tab Lynch MD IMG XR PROCEDURES Final Result * ECG 12 lead (11/20/2024 8:16 PM EDT) Only the most recent of2 resultswithin the time period is included. Ventricular Rate ECG 60 BPM GEMUSE Atrial Rate 60 BPM GEMUSE P-R Interval 168 ms GEMUSE QRS Duration 82 ms GEMUSE Q-T Interval 424 ms GEMUSE QTc 424 ms GEMUSE P Wave Ventress 69 degrees GEMUSE R Ventress -33 degrees GEMUSE T Ventress 26 degrees GEMUSE ECG Interpretation Normal sinus rhythm Left axis deviation Minimal voltage criteria for LVH, may be normal variant ( R in aVL ) Abnormal ECG When compared with ECG of 20-NOV-2024 16:57, No significant change was found Confirmed by MD Augustin Christopher ([id number]) on 11/22/2024 1:46:49 AM GEMUSE 11/20/2024 8:16 PM EDT 11/22/2024 1:46 AM EDT us Tab Lynch MD ECG ORDERABLES Final Result Performing Organization Address [facility]/ZIP Co de Phone Number GEMUSE * Troponin I high sensitivity (11/20/2024 8:12 PM EDT) Only the most recent of2 resultswithin the time period is included. [facility] High Sensitivity Troponin I 6 <=79 ng/L LAB CHEMISTRY METHOD 11/20/2024 9:05 PM EDT [facility] Blood Venous blood specimen / Unknown Venipuncture / Unknown 11/20/2024 8:12 PM EDT 11/20/2024 8:36 PM EDT Narrative [facility] - 11/20/2024 9:05 PM EDT High levels of biotin in samples may falsely decrease hsTroponin values. ??Use caution when interpreting hsTroponin results in patients taking biotin who exhibit renal impairment (eGFR <60) or in patients taking more than 20 mg/day of biotin. us Tab Lynch MD LAB BLOOD ORDERABLES Final Resu lt Performing Organization Address City/[facility]/ZIP Co de Phone Number [facility] [address] [place] [address], [place] [phone] * CBC auto differential (11/20/2024 5:17 PM EDT) [facility] WBC 8.4 4.8 - 10.8 K/mcL LAB HEMETOLOGY METHOD 11/20/2024 5:32 PM EDT [facility] RBC 5.00 4.50 - 5.50 M/mcL LAB HEMETOLOGY METHOD 11/20/2024 5:32 PM EDT [facility] Hemoglobin 15.2 13.5 - 17.5 g/dL LAB HEMETOLOGY METHOD 11/20/2024 5:32 PM EDT [facility] Hematocrit 46.0 42.0 - 54.0 % LAB HEMETOLOGY METHOD 11/20/2024 5:32 PM EDT [facility] MCV 91.5 79.0 - 98.0 FL LAB HEMETOLOGY METHOD 11/20/2024 5:32 PM EDT [facility] MCH 30.2 27.0 - 32.0 pcg LAB HEMETOLOGY METHOD 11/20[facility]2024 [facility] MCHC 33.0 32.0 - 37.0 g/dL LAB HEMETOLOGY METHOD 11/20/2024 5:32 PM EDT [facility] RDW 12.3 11.0 - 15.0 % LAB HEMETOLOGY METHOD 11/20/2024 5:32 PM EDT [facility] Platelets 213 130 - 400 K/mcL LAB HEMETOLOGY METHOD 11/20[facility]2024 5[facility] MPV 10.3 7.0 - 11.0 FL LAB HEMETOLOGY METHOD 11/20/2024 5:32 PM EDT [facility] NRBC 0.0 <1.0 % LAB HEMETOLOGY METHOD 11/20/2024 5:32 PM EDT [facility] NRBC Absolute 0.00 <0.10 K/mcL LAB HEMETOLOGY METHOD 11/20/2024 5:32 PM EDT [facility] Neutrophils Relative 57.9 % LAB HEMETOLOGY METHOD 11/20/2024 5:32 PM EDT [facility] Lymphocytes Relative 26.3 % LAB HEMETOLOGY METHOD 11/20/2024 5:32 PM EDT [facility] Monocytes Relative 10.7 % LAB HEMETOLOGY METHOD 11/20/2024 5:32 PM EDT [facility] Eosinophils Relative 3.7 % LAB HEMETOLOGY METHOD 11/20/2024 5:32 PM EDT [facility] Basophils Relative 1.2 % LAB HEMETOLOGY METHOD 11/20/2024 5:32 PM EDT [facility] Immature Granulocytes Relative 0.2 % LAB HEMETOLOGY METHOD 11/20/2024 5:32 PM EDT [facility] Neutrophils Absolute 4.85 1.50 - 7.00 K/mcL LAB HEMETOLOGY METHOD 11/20/2024 5:32 PM EDT [facility] Lymphocytes Absolute 2.21 1.00 - 5.00 K/mcL LAB HEMETOLOGY METHOD 11/20/2024 5:32 PM EDT [facility] Monocytes Absolute 0.90 0.20 - 1.00 K/mcL LAB HEMETOLOGY METHOD 11/20/2024 5:32 PM EDT [facility] Eosinophils Absolute 0.31 0.00 - 0.50 K/mcL LAB HEMETOLOGY METHOD 11/20/2024 5:32 PM T [facility] Basophils Absolute 0.10 0.00 - 0.20 K/mcL LAB HEMETOLOGY METHOD 11/20/2024 5:32 PM EDT [facility] Immature Granulocytes Absolute 0.02 0.00 - 0.03 K/mcL LAB HEMETOLOGY METHOD 11/20/2024 5:32 PM T [facility] Blood Venous blood specimen / Unknown Venipuncture / Unknown 11/20/2024 5:17 PM EDT 11/20/2024 5:23 PM EDT us Tab Lynch MD LAB BLOOD ORDERABLES Final Resu lt Performing Organization Address City/[facility]/ZIP Co de Phone Number [facility] [address] [place] [address], [place] [phone] * APTT (11/20/2024 5:17 PM EDT) aPTT 29.4 24.1 - 39.3 sec LAB COAGULATION METHOD 11/20/2024 5:36 PM EDT [facility] Blood Venous blood specimen / Unknown Venipuncture / Unknown 11/20/2024 5:17 PM EDT 11/20/2024 5:23 PM EDT Brandon Brennan MD LAB BLOOD ORDERABLES Final Result Performing Organization Address [facility] Co de Phone Number [facility] [address] [place] [address], [place] [phone] * Protime-INR (11/20/2024 5:17 PM EDT) [facility] Protime 11.7 10.6 - 13.9 sec LAB COAGULATION METHOD 11/20/2024 5:36 PM EDT [facility] INR 0.9 LAB COAGULATION METHOD 11/20/2024 5:36 PM EDT [facility] Blood Venous blood specimen / Unknown Venipuncture / Unknown 11/20/2024 5:17 PM EDT 11/20/2024 5:23 PM EDT Brandon Brennan MD LAB BLOOD ORDERABLES Final Result Performing Organization Address City/[facility]/ZIP Co de Phone Number [facility] [address] [place] [address], [place] [phone] * B-type natriuretic peptide (11/20/2024 5:17 PM EDT) BNP 34 <=100 pcg/mL LAB CHEMISTRY METHOD 11/20/2024 5:59 PM EDT [facility] Blood Venous blood specimen / Unknown Venipuncture / Unknown 11/20/2024 5:17 PM EDT 11/20/2024 5:23 PM EDT us Tab Lynch MD LAB BLOOD ORDERABLES Final Resu lt Performing Organization Address City/[facility]/ZIP Co de Phone Number [facility] [address] [place] [address], [place] [phone] * Magnesium (11/20/2024 5:17 PM EDT) Magnesium 2.1 1.9 - 2.6 mg/dL LAB CHEMISTRY METHOD 11/20/2024 5:49 PM EDT [facility] Blood Venous blood specimen / Unknown Venipuncture / Unknown 11/20/2024 5:17 PM EDT 11/20/2024 5:23 PM EDT us Tab Lynch MD LAB BLOOD ORDERABLES Final Resu lt Performing Organization Address [facility]/ZIP Co de Phone Number [facility] [address] [place] [address], [place] [phone] * (ABNORMAL) Lipase (11/20/2024 5:17 PM EDT) Lipase 105(H) 13 - 75 unit/L LAB CHEMISTRY METHOD 11/20/2024 5:49 PM EDT [facility] Blood Venous blood specimen / Unknown Venipuncture / Unknown 11/20/2024 5:17 PM EDT 11/20/2024 5:23 PM EDT us Tab Lynch MD LAB BLOOD ORDERABLES Final Resu lt Performing Organization Address City/[facility]/ZIP Co de Phone Number [facility] [address] [place] [address], [place] [phone] * (ABNORMAL) Comprehensive metabolic panel (11/20/2024 5:17 PM EDT) Sodium 140 133 - 145 mmol/L LAB CHEMISTRY METHOD 11/20/2024 5:49 PM [facility] Potassium 4.3 3.5 - 5.5 mmol/L LAB CHEMISTRY METHOD 11/20/2024 5:49 PM [facility] Chloride 108 96 - 110 mmol/L LAB CHEMISTRY METHOD 11/20/2024 5:49 PM [facility] CO2 25 21 - 32 mmol/L LAB CHEMISTRY METHOD 11/20/2024 5:49 PM [facility] Anion Gap 7 3 - 11 LAB CHEMISTRY METHOD 11/20/2024 5:49 PM [facility] Glucose 97 70 - 100 mg/dL LAB CHEMISTRY METHOD 11/20/2024 5:49 PM [facility] BUN 13 5 - 25 mg/dL LAB CHEMISTRY METHOD 11/20/2024 5:49 PM [facility] Creatinine 0.97 0.70 - 1.30 mg/dL LAB CHEMISTRY METHOD 11/20/2024 5:49 PM [facility] eGFR 90 >=60 mL/min/1. 73m2 LAB CHEMISTRY METHOD 11/20/2024 5:49 PM [facility] Comment:Calculation based on the??Chronic Kidney Disease Epidemiology Collaboration (CKD-EPI) equation refit??without adjustment for race. BUN/Creatinine Ratio 13.4 LAB CHEMISTRY METHOD 11/20/2024 5:49 PM [facility] Calcium 9.4 8.5 - 10.5 mg/dL LAB CHEMISTRY METHOD 11/20/2024 5:49 PM [facility] AST (SGOT) 36 10 - 42 unit/L LAB CHEMISTRY METHOD 11/20/2024 5:49 PM [facility] ALT (SGPT) 64(H) 10 - 60 unit/L LAB CHEMISTRY METHOD 11/20/2024 5:49 PM EDT [facility] Alkaline Phosphatase 78 42 - 121 unit/L LAB CHEMISTRY METHOD 11/20/2024 5:49 PM EDT [facility] Total Protein 7.9 6.0 - 8.0 g/dL LAB CHEMISTRY METHOD 11/20/2024 5:49 PM EDT [facility] Albumin 4.1 3.2 - 5.0 g/dL LAB CHEMISTRY METHOD 11/20/2024 5:49 PM EDT [facility] Total Bilirubin 0.3 0.0 - 1.4 mg/dL LAB CHEMISTRY METHOD 11/20/2024 5:49 PM EDT [facility] Blood Venous blood specimen / Unknown Venipuncture / Unknown 11/20/2024 5:17 PM EDT 11/20/2024 5:23 PM EDT Tab Lynch MD LAB BLOOD ORDERABLES Final Resu lt [facility] [address] [place] [address], from Last 3 Months Insurance MEDICARE MEDICAID - [place] Care Teams Partnership Development Manager Relationship Specialty Start Date End Date Gunjan Wright NP [address] [place] [address] [phone] PCP - General 11/20/24
--- OUTSIDE RECORDS SUMMARY | 2024-12-21 11:22 | XMS_ITS | Clinical Summary ---
Author Organization [employer] Address [address] [facility] [address] [place] [address] Care Team Providers Care Vice President Network Name Role Phone Kiran Warner Primary Care Provider [phone] Allergies No known active allergies Medications aspirin 81 MG EC tablet Take 1 tablet by mouth at bed time. Active Calcium Polycarbophil (fiber) 625 MG tablet Active methylcellulose (Citrucel) oral powder Active naproxen sodium (Aleve) 220 MG tablet Take 2 tablets by mouth every 12 (twelve) hours. Active zoster vaccine-recombinan t adjuvanted (Shingrix) 50 MCG/0.5ML vaccine Inject 0.5 mL into the shoulder, thigh, or buttocks. 0 Active Blood Pressure kit A ctive selenium sulfide (Selsun) 2.5 % shampooIndications :Rash Apply topically if needed each day (Rash). 118 mL 3 4 Active atorvastatin (Lipitor) 10 MG tabletIndications: Hyperlipidemia, unspecified hyperlipidemia type TAKE 1 TABLET BY MOUTH EVERY DAY 90 tablet 5 Active lisinopril 10 MG tabletIndications: Primary hypertension TAKE 1 TABLET BY MOUTH EVERY DAY 90 tablet 5 Active propranolol LA (Inderal LA) 120 MG 24 hr capsuleIndications :Hypertension, unspecified type TAKE 1 CAPSULE BY MOUTH EVERY EVENING 90 capsule 5 Active Active Problems Problem Noted Date Diagnosed Date Hypertensive disorder 12/14/2014 Shoulder pain 09/11/2014 Disorder of rotator cuff 09/20/2013 Neck pain 09/20/2013 Chronic back pain 02/21/2013 Blood in urine 01/28/2012 Encounters Date Type Department Care Team Description 12/02/2024 Telephone [facility] [address] [place] [address] Kiran Warner ANP No Show 11/26/2024 Orders Only [facility] External Provider, [facility] 11/23/2024 Telephone [facility] [address] [facility] [place] [address] Kiran Warner ANP ER Follow-up 11/22/2024 Telephone [facility] [address] [place] [address] Kiran Warner ANP ER Follow-up 11/11/2024 Population Health Risk Score [facility] Department [address] [place] [phone] Provider, Population Health Generic 10/26/2024 Refill [facility] [address] [facility] [place] [address] Kiran Warner ANP Hypertension, unspecified type 09/30/2024 Refill [facility] [address] [place] [address] Kiran Warner ANP Primary hypertension from Last 3 Months Immunizations Name Administration Dates Next Due Hep B, adult 01/26/2019,08/21/2017,07/17/2017 Influenza Injectable Quadriv alant Preservative Free IIV4 MDCK 08/06/2020 Influenza injectable quadriv alent preservative free 08/03/2019,06/18/2017 Tdap 08/03/2019 Zoster, Recombinant 10/08/2020,08/06/2020 Social History Tobacco Use Types Packs/Day Years Used Date Smoking Tobacco: Former Cigarettes Smokeless Tobacco: Never Tobacco Cessation:Counseling Given: Not Answered Alcohol Use Standard Drinks/Week Comments Not Currently 0 (1 standard drink = 0.6 oz pur e alcohol) Depression Answer Date Recorded Patient Health Questionnaire-9 Score 0 05/05/2023 Housing Stability Answer Date Recorded What is your housing situation today? I have torrey meade 07/06/[address] you li ve. Do you have problems with any of the following? None of the above 07/06/2023 Food Insecurity Answer Date Recorded Within the past 12 months, y ou worried that your food would run out before you got money to buy more: Never True 07/06/2023 Within the past 12 months,th e food you bought just didn't last and you didn't have enough money to get more: Never True 01/2023 Transportation Answer Date Recorded In the past 12 months, has l ack of transportation kept you from medical appts, meetings, work or from getting things needed for daily living? No 07/06/2023 Utilities Answer Date Recorded In the past 12 months, has t he electric, gas, oil or water company threatened to shut off services in your home? No 07/06/2023 Depression Answer Date Recorded Patient Health Questionnaire-2 Score 0 05/05/2023 Sex and Gender Information Value Date Recorded Sex Assigned at Male 06/30/2022 10:17 AM EDT Legal Sex Male 10:17 AM EDT Gender Identity Choose not to disclose 10:17 AM EDT Sexual Orientation Choose not to disclose 2021 10:17 AM EDT Last Filed Vital Signs Vital Sign Reading Time Taken Comments Blood Pressure 144/100 05/05/2023 11:01 AM EDT Pulse 68 05/05/2023 11:01 AM EDT Temperature - - Respiratory Rate 18 05/05/2023 11:01 AM EDT Oxygen Saturation - - Inhaled Oxygen Concentration - - Weight 81.6 kg (180 lb) 05/05/2023 11:01 AM EDT Height 167.6 cm (5' 6 ) 05/05/2023 11:01 AM EDT Body Mass Index 29.05 05/05/2023 11:01 AM EDT Plan of Treatment Health Maintenance Due Date Last Done Comments CT Colonography 1965 Colonoscopy 1965 Colorectal Cancer Screening 1965 FIT DNA/Cologuard 1965 FIT 1965 FOBT 1965 Sigmoidoscopy 1965 Alcohol/Substance Use Screening 1977 Pneumococcal Vaccine: 50+ Years (1 of 1 - PCV) 11/11/2015 COVID-19 Vaccine (2023-2 5 season) 2024 04/07/2021, 03/10/2021 Influenza Vaccine (#1) 2024 , 08/03/2019, 06/18/2017 Depression Screening 05/05/2024 05/05/2023, 05/05/2023 SDOH Screening 05/05/2024 05/05/2023 Tobacco Screening 05/05/2024 05/05/2023 Lipid Panel 05/05/2028 05/05/2023, 08/06/2020 DTaP/Tdap/Td Vaccines (2 - T d or Tdap) 08/03/2029 08/03/2019, 03/11/2013 RSV Patients and Patients Aged 60 years or older (1 - 1-dose 75+ series) 2040 Hepatitis B Vaccines Completed 01/26/2019, 08/21/2017, 07/17/2017 Zoster Vaccines Completed 10/08/2020, 08/06/2020 HIV Screening Completed 05/05/2023, 08/06/2020 Hepatitis C Screening Completed 05/05/2023 , 08/06/2020 HIB Vaccines Aged Out No longer eligi ble based on patient's age to complete this topic HPV Vaccines Aged Out No longer eligi ble based on patient's age to complete this topic Hepatitis A Vaccines Aged Out No long er eligible based on patient's age to complete this topic IPV Vaccines Aged Out No longer eligi ble based on patient's age to complete this topic Meningococcal Vaccine Aged Out No ramila dale eligible based on patient's age to complete this topic RSV under 20 months Aged Out No longe r eligible based on patient's age to complete this topic Rotavirus Vaccines Aged Out No longer eligible based on patient's age to complete this topic Procedures Procedure Name Priority Date/Time Associated Diagnosis Comments XR SHOULDER 2+ VIEWS RIGHT Routine 11/26/2024 9:47 AM EDT HEPATITIS C AB W/REFL TO HCV RNA, QN, PCR Routine 05/05/2023 12:06 PM EDT Healthcare maintenance Routine screening for STI (sexually transmitted infection) HIV ANTIBODY/ANTIGEN ([place] DPH) Routine 05/05/2023 12:06 PM EDT LIPID PANEL, STANDARD Routine 05/05/2023 12:06 PM EDT Primary hypertension from Last 3 Months or Most Recently Relevant to Health Maintenance Results * XR Shoulder 2+ Views Right (11/26/2024 9:47 AM EDT) Anatomical Region Laterality Modality Upper Extremities, Shoulder Right Radi ographic Imaging 11/26/2024 9:47 AM EDT Narrative 11/26/2024 9:48 AM EDT ? [facility] ?[address] ?[place] [address] ?XRay Report ? Signed ? Patient: Junaid,See H ?MR#: [id number] ?? 68 ? : 1965 ?Acct:[id number] ? Age/Sex: 59 / M ?ADM Date: 11/26/24 ? Loc: HO.ED ? Attending Dr: ? Ordering Physician: Jeremias Khan MD ?? Date of Service: 11/26/24 ?? Procedure(s): XR shoulder RT min 2V ?? Accession Number(s): [id number] ? cc: KIRAN WARNER NP; Jeremias Khan MD ? CLINICAL HISTORY: pain ? 3 view right shoulder ? Comparison: None ? Findings: ?? No fractures or dislocations. ?? No significant arthritic change. ?? No erosions. No radiopaque foreign body. ? IMPRESSION: ?? 1. No acute findings ? This document has been electronically signed by: Ronnie Hernandez MD on ?? 11/26/2024 09:47:01 ? Dictated By: ?Ronnie Hernandez MD ? Signed By: ?<Electronically signed by Ronnie Hernandez MD in OV> ? 11/26/2448 ? DD/ ? TD/TT: 11/26/24946 ? [employer]: ? Procedure Note Kirit Girard - 11/26/[address] [address] XRay Report Signed Patient: See Quiroga HMR#: [id number] 68 : 1965Acct:[id number] Age/Sex: 59 / MADM Date: 11/26/24 Loc: HO.ED Attending Dr: Ordering Physician: Jeremias Khan MD Date of Service: 11/26/24 Procedure(s): XR shoulder RT min 2V Accession Number(s): [id number] cc: KIRAN WARNER NP; Jeremias Khan MD CLINICAL HISTORY: pain 3 view right shoulder Comparison: None Findings: No fractures or dislocations. No significant arthritic change. No erosions. No radiopaque foreign body. IMPRESSION: 1. No acute findings This document has been electronically signed by: Ronnie Hernandez MD on 11/26/2024 09:47:01 Dictated By: Ronnie Hernandez MD Signed By: <Electronically signed by Ronnie Hernandez MD in OV> 11/26/24947 DD/ 6 TD/TT: 11/26/24946 [employer]: [facility] External Provider IMG XR PROCEDURES Edited Result - Final * HIV Ab/Ag ([facility]) (05/05/2023 12:06 PM EDT) Pathologist [facility] HIV AB/AG Nonreactive Nonreactive [facility] Comment:HIV-1 p24 Ag and/or HIV-1/HIV-2 Ab not detected.A test result that is nonreactive does not exclude thepossibility of exposure to or infection with HIV-1 and/orHIV-2. Nonreactive results in this assay for individualswith prior exposure to HIV-1 and/or HIV-2 may be due toantigen and antibody levels that are below the limit ofdetection of this assay.[facility] HIV Ag/Ab Combo assay result andsupplemental assay results should be interpreted inconjunction with the patient's clinical presentation,history and other laboratory results. If the results areinconsistent with clinical evidence, additional testing issuggested to confirm the result. 05/05/2023 12:0 6 PM EDT 05/05/2023 1:16 PM EDT [facility] LAB BLOOD ORDERABLES Final Resul t [facility] [address] [place] [phone] * Hepatitis C Antibody with Reflex to HCV, RNA, Quantitative, Real-Time PCR (05/05/2023 12:06 PM EDT) Pathologist [facility] Hepatitis C Antibody Nonreactive Nonreactive [facility] Comment:Antibodies to HCV no t detected; does not exclude early acuteHCV infection. Blood Venous blood specimen / Unknown 05/05/2023 12:06 PM EDT 05/05/2023 1:16 PM EDT Kiran Warner ANP LAB BLOOD ORDERABLES Final Resul t Performing Organization Address [facility] de Phone Number [facility] [address] [place] [phone] * Lipid Panel, Standard (05/05/2023 12:06 PM EDT) Triglycerides 109 <150 mg/dL [facility] Comment:Desirable Triglyceri de: less than 150 mg/dLBorderline High Triglyceride 150-199 mg/dLHigh Triglyceride: 200-499 mg/dLVery High Triglyceride: greater than or equal to 5OO mg/dL Cholesterol 162 <200 mg/dL [facility] Comment:Desirable Cholestero l: less than 200 mg/dLBorderline High Cholesterol: 200-239 mg/dLHigh Cholesterol: greater than 239 mg/dL LDL Cholesterol Calculated 92 <100 mg/dL [facility] Comment:Desirable LDL: less than 100 mg/dLNear Optimal/Above Optimal LDL: 110- 129 mg/dLBorderline High LDL: 130-159 mg/dLHigh LDL: 160-189 mg/dLVery High LDL: greater than or equal to 190 mg/dL HDL Cholesterol 49 >40 mg/dL [facility] Comment:Desirable HDL: great er than 40 mg/dL Note: This HDL assay may give artificially low results in patients with liver disease. Blood Venous blood specimen / Unknown 05/05/2023 12:06 PM EDT 05/05/2023 1:16 PM EDT Kiran Warner ANP LAB BLOOD ORDERABLES Final Resul t Performing Organization Address [facility] Co de Phone Number [facility] [address] [place] [phone] from Last 3 Months or Most Recently Relevant to Health Maintenance Insurance MEDICARE Care Teams Vice President Network Relationship Specialty Start Date End Date Kiran Warner ANP [address] [place] [phone] PCP - General Family Medicine 04/30/20
--- OUTSIDE RECORDS SUMMARY | 2024-12-21 11:22 | XMS_ITS | Encounter Summary ---
Author Organization [employer] Address [address] [place] [address] [address] [place] [address] Care Team Providers Care Disc Pad Knockout Worker Name Role Phone Gunjan Wright Primary Care Provider [phone] Encounter Details Date Type Department Care Team (Late st Contact Info) Description 04/13/2023 Telephone [facility] [address] [place], [place] [phone] Gunjan Wright ANP [address] [place] [address] Social History Tobacco Use Types Packs/Day Years Used Date Smoking Tobacco: Never Assessed Sex and Gender Information Value Date Recorded Sex Assigned at Male 06/30/2022 10:17 AM EDT Legal Sex Male 10:17 AM EDT Gender Identity Choose not to disclose 10:17 AM EDT Sexual Orientation Choose not to disclose 2021 10:17 AM EDT documented as of this encounter Plan of Treatment Not on file documented as of this encounter Visit Diagnoses Not on filedocumented in this encounter Care Teams Disc Pad Knockout Worker Relationship Specialty Start Date End Date Gunjan Wright ANP [address] [place] [address] [phone] PCP - General Family Medicine 04/30/20 documented as of this encounter
== END 2024-12-21 10:46 | disposition home or self-care (01) ==
LOC: HO.HOS 09:55
PROVIDERS: PCP Nurse Practitioner Primary Care; Visit Provider Physician Assistant
DX: M54.12 Radiculopathy, cervical region (principal)
CPT/HCPCS: 20610; 99204

== ENCOUNTER → 2024-12-21 09:54 | Outpatient (BNVA) | payer MEDICARE, SELFPAY | PROVIDERS: PCP Nurse Practitioner Primary Care; Visit Provider Physician Assistant | DX: M54.12 Radiculopathy, cervical region (principal); M75.101 Unspecified rotator cuff tear or rupture of right shoulder, not specified as traumatic | CPT/HCPCS: 20610; 99202; J1010; J2003 ==

== ENCOUNTER 2025-04-27 10:19 | Outpatient (REF) | payer MEDICARE, OTHER, SELFPAY ==
--- OUTSIDE RECORDS SUMMARY | 2025-04-24 15:30 | XMS_ITS | Encounter Summary ---
Author Organization [employer] Address [address] [place] [address] 7[address] [place] [address] Care Team Providers Care Painter Sign Maintenance Name Role Phone Gunjan Wright Primary Care Provider [phone] Reason for Referral * Consultation (Routine) - Authorized Specialty Diagnoses / Procedures Referred By Jovan rodriguez Referred To Contact Gastroenterology Diagnoses Screening for malignant neoplasm of colon Gunjan Wright ANP [address] [place] [address] Phone: tel: fax: Ede Moreno MD [address] [place] [address] [address] [facility] [address] [place] [address] Phone: tel: fax: Referral ID Status Reason Start Date Expiration Date Visits Requested Visits Authorized [id number] Authorized Specialty Services Required 04/24/2025 04/24/2026 1 1 Reason for Visit * Reason Comments Follow-up Encounter Details Date Type Department Care Team (Late st Contact Info) Description 04/24/2025 3:30 PM EDT Office Visit [facility] [address] [place] [address] Gunjan Wright ANP [address] [place] [address] Chest pain in adult (Primary Dx); Primary hypertension; Chronic bilateral low back pain with left-sided sciatica; Screening for malignant neoplasm of colon Social History Tobacco Use Types Packs/Day Years Used Date Smoking Tobacco: Former Cigarettes Smokeless Tobacco: Never Alcohol Use Standard Drinks/Week Comments Not Currently 0 (1 standard drink = 0.6 oz pur e alcohol) Alcohol Answer Date Recorded How often do you have a drink containing alcohol ? 3 04/24/2025 How many drinks containing a lcohol do you have on a typical day when you are drinking? 0 04/24/2025 How often do you have six or more drinks on one occasion? 4 04/24/2025 Depression Answer Date Recorded Patient Health Questionnaire-9 Score 0 04/24/2025 Patient Health Questionnaire-9 Score 0 04/24/2025 Last PHQ-9: Questionnaire Data Not on file 0 04/24/2025 Housing Stability Answer Date Recorded What is your housing situation today? I have torrey meade 04/24/[address] you li ve. Do you have problems with any of the following? None of the above 04/24/2025 Food Insecurity Answer Date Recorded Within the past 12 months, y ou worried that your food would run out before you got money to buy more: Never True 2024 Within the past 12 months,th e food you bought just didn't last and you didn't have enough money to get more: Sometimes True 04/24/2025 Transportation Answer Date Recorded In the past 12 months, has l ack of transportation kept you from medical appts, meetings, work or from getting things needed for daily living? No 04/24/2025 Utilities Answer Date Recorded In the past 12 months, has t he electric, gas, oil or water company threatened to shut off services in your home? No 04/24/2025 Depression Answer Date Recorded Patient Health Questionnaire-2 Score 0 04/24/2025 Internet Access Answer Date Recorded Internet Access Q1 No 04/24/2025 Internet Access Q2 I do not want or need it 04/01 Sex and Gender Information Value Date Recorded Sex Assigned at Male 06/30/2022 10:17 AM EDT Legal Sex Male 10:17 AM EDT Gender Identity Choose not to disclose 10:17 AM EDT Sexual Orientation Choose not to disclose 2021 10:17 AM EDT documented as of this encounter Last Filed Vital Signs Vital Sign Reading Time Taken Comments Blood Pressure 140/100 04/24/2025 4:19 PM EDT Pulse 61 04/24/2025 3:58 PM EDT Temperature 36.4 C (97.6 F) 04/24/2025 3:58 PM EDT Respiratory Rate 20 04/24/2025 3:58 PM EDT Oxygen Saturation 98% 04/24/2025 3:58 PM EDT Inhaled Oxygen Concentration - - Weight 82.6 kg (182 lb) 04/24/2025 3:58 PM EDT Height 170.2 cm (5' 7 ) 04/24/2025 3:58 PM EDT Body Mass Index 28.51 04/24/2025 3:58 PM EDT documented in this encounter Functional Status * Over the past 2 weeks, how often have you been bothered by any of the following problems? Question Answer Date of Assessment Author Patient Health Questionnaire -2 Score 0 04/24/2025 3:59 PM EDT Marion Pantoja [place] * Little interest or pleasure in doing things Answer Date of Assessment Author Not at all 04/24/2025 3:59 PM EDT Marion Pantoja MA * Feeling down, depressed, or hopeless Answer Date of Assessment Author Not at all 04/24/2025 3:59 PM EDT Marion Pantoja MA * Trouble falling or staying asleep, or sleeping too much Answer Date of Assessment Author Not at all 04/24/2025 3:59 PM EDT Marion Pantoja MA * Feeling tired or having little energy Answer Date of Assessment Author Not at all 04/24/2025 3:59 PM EDT Marion Pantoja MA * Poor appetite or overeating Answer Date of Assessment Author Not at all 04/24/2025 3:59 PM EDT Marion Pantoja MA * Feeling bad about yourself - or that you are a failure or have let yourself or your family down Answer Date of Assessment Author Not at all 04/24/2025 3:59 PM EDT Marion Pantoja MA * Trouble concentrating on things, such as reading the newspaper or watching television Answer Date of Assessment Author Not at all 04/24/2025 3:59 PM EDT Marion Pantoja MA * Moving or speaking so slowly that other people could have noticed? Or the opposite - being so fidgety or restless that you have been moving around a lot more than usual. Answer Date of Assessment Author Not at all 04/24/2025 3:59 PM EDT Marion Pantoja MA * Thoughts that you would be better off or hurting yourself in some way Answer Date of Assessment Author Not at all 04/24/2025 3:59 PM EDT Marion Pantoja MA * Patient Health Questionnaire-9 Score Answer Date of Assessment Author 0 04/24/2025 3:59 PM EDT Marion Pantoja MA * Over the last 2 weeks, how often have you been bothered by any of the following problems? Question Answer Date of Assessment Author Feeling nervous, anxious, or on edge 0 04/24/2025 3:59 PM EDT Marion Pantoja MA Not being able to stop or co ntrol worrying 0 04/24/2025 3:59 PM EDT Marion Pantoja MA Worrying too much about diff erent things 0 04/24/2025 3:59 PM EDT Marion Pantoja MA Trouble relaxing 0 04/24/2025 3:59 PM EDT Marion Mccray MA Being so restless that it is hard to sit still 0 04/24/2025 3:59 PM EDT Marion Pantoja MA Becoming easily annoyed or irritable 0 04/24/2025 3:59 PM EDT Marion Pantoja MA Feeling afraid as if somethi ng awful might happen 0 04/24/2025 3:59 PM EDT Marion Pantoja MA MARY-7 Total Score 0 04/24/2025 3:59 PM EDT Marion Pantoja MA documented as of this encounter Progress Notes * DAVID Hernandez - 04/24/2025 3:30 PM EDT Subjective Patient ID: See Quiroga (Hero) is a 59 y.o. adult who presents for ED follow- up CP. HPI ED visit at [facility] 01/19/25 for CP Last visit here 05/2023 Per chart review of ED notes, was watching TV when he had sudden onset L chest pain radiating to LUE, nausea, went to BR and felt lightheaded, had BRBPR, diaphoresis. EKG at ED EKG significant for normal sinus rhythm at a rate of 63 bpm, left axis deviation, T waveinversion in lead III appears new compared to prior EKG, no other acute ST changes on my independent review Notes: Patient had chest x-ray negative for pneumonia or pulmonary edema on my independent review and radiology review. Labs significant for no leukocytosis, no anemia, normal platelets, normal electrolytes, normal renal function, mildly elevated AST of 50 and ALT of 75, likely in the setting of alcohol use disorder, normal NT proBNP, negative troponin, repeat troponin stable at 6, negative COVID , RSV, influenza swab on my independent review. On reevaluation patient feels much improved after Tylenol and lidocaine patch. He did not have any improvement after nitroglycerin although this did cause a headache. He was also rehydrated with IV fluids. He is reassured by his normal workup and willfollow-up with his PCP, he was given strict return precautions.. His sister recently at 71yo, sounds like respiratory arrest. She was O2 dependent. BMI Readings from Last 3 Encounters: 04/24/25 28.51 kg/m?? 05/05/23 29.05 kg/m?? 04/11/22 25.18 kg/m?? Wt Readings from Last 3 Encounters: 04/24/25 182 lb (82.6 kg) 05/05/23 180 lb (81.6 kg) 04/11/22 156 lb (70.8 kg) He is concerned b/c he is getting a lot of pain in L side of low back and down left leg, he has h/oL4/L5 Removal and replaced w/ titanium cages, from Dr. Mendez Barton at [facility]. Taking APAP as needed plus OTC motrin w/ some effect, also goes swimming and uses hot water in shower which does help. Pain quality is shocking, like hitting your funny bone he says. No urinary, bowel sx. No weakness. Pain is worse w/ going from seated to standing. Quit smoking: started at 16yo, quit intermittently, longest 16-25yo The 10-year ASCVD risk score (Patricia SALGADO, et al., 2019) is: 9% Values used to calculate the score: Age: 59 years Sex: Male Is Non- : No Diabetic: No Tobacco smoker: No Systolic Blood Pressure: 140 mmHg Is BP treated: Yes HDL Cholesterol: 49 mg/dL Total Cholesterol: 162 mg/dL BP this AM 127/96 x 2 Review of Systems Constitutional: Negative for chills and fever. HENT: Negative for sore throat. Respiratory: Negative for cough and shortness of breath. Cardiovascular: Negative for chest pain. Gastrointestinal: Negative for constipation and diarrhea. Endocrine: Negative for polydipsia, polyphagia and polyuria. Genitourinary: Negative for dysuria. Musculoskeletal: Positive for back pain. Psychiatric/Behavioral: Negative for dysphoric mood. The patient is nervous/anxious. Objective BP (!) 140/100 (BP Location: Left arm, Patient Position: Sitting, BP Cuff Size: Large adult) Pulse 61 Temp 97.6 ??F (36.4 ??C) (Oral) Resp 20 Ht 5' 7 (1.702 m) Wt 182 lb (82.6 kg) SpO2 98% BMI 28.51 kg/m?? Physical Exam Constitutional: General: See is not in acute distress. Appearance: Normal appearance. See is not ill-appearing. HENT: Head: Normocephalic and atraumatic. Eyes: General: No scleral icterus. Extraocular Movements: Extraocular movements intact. Pupils: Pupils are equal, round, and reactive to light. Cardiovascular: Rate and Rhythm: Normal rate and regular rhythm. Heart sounds: No murmur heard. Pulmonary: Effort: Pulmonary effort is normal. No accessory muscle usage or respiratory distress. Neurological: Mental Status: See is alert and oriented to person, place, and time. Psychiatric: Mood and Affect: Mood normal. Behavior: Behavior normal. Assessment/Plan Diagnoses and all orders for this visit: Chest pain in adult Has not recurred. Pt says in context of anxiety. Declined referral to cards at this time. Primary hypertension BP remains elevated on repeat Reports home Bps also elevated Goal < 130/80 INCREASE lisinopril to 20mg daily, get labs in 2 weeks Continue to encourage low salt diet, regular exercise, home BP monitoring, compliance with medications. Call clinic if BP is frequently >150/90 Go to ED/call 911 if > 170/100 and having sx such as KING, visual changes, chest pain, SOB Last renal function: Lab Results Component Value Date GLUCOSE 105 08/13/2024 NA 141 08/13/2024 K 4.5 08/13/2024 CO2 24 08/13/2024 CL 109 (H) 08/13/2024 BUN 10 08/13/2024 CREATININE 0.95 08/13/2024 EGFR >60 08/13/2024 Lab Results Component Value Date MICROALBCREA NOTE 08/06/2020 No results found for: MICROALBCREU - lisinopril (Prinivil) 20 MG tablet; Take 1 tablet (20 mg) by mouth Once per day. Chronic bilateral low back pain with left-sided sciatica Cautiously rx meloxicam for PRN use, advise cont APAP as needed, heat, follow-up with ortho as planned (he called this AM for visit) - meloxicam (Mobic) 7.5 MG tablet; Take 1 tab once or twice daily as needed for back pain Screening for malignant neoplasm of colon GI referral 04/24/25 Other orders - Pneumococcal conjugate vaccine 20-valent IM documented in this encounter Plan of Treatment Upcoming Encounters Date Type Department Care Team (Late st Contact Info) Description 06/12/2025 3:00 PM EDT Office Visit [facility] [address] [place], [place] [phone] Gunjan Wright ANP [address] [place] [address] Scheduled Orders Name Type Priority Associated Diagnoses Orde r Schedule Comprehensive Metabolic Panel Lab Routine Primary hypertension Expected: 04/24/2025 (Approximate), Expires: 04/24/2026 Lipid Panel, Standard Lab Routine Primary hypertension Expected: 04/24/2025 (Approximate), Expires: 04/24/2026 Albumin, Random Urine W/Creatinine Lab Routine Primary hypertension Expected: 04/24/2025 (Approximate), Expires: 04/24/2026 Scheduled Referrals Name Type Priority Associated Diagnoses Order Schedule Referral to Gastroenterology Outpatient Referral Routine Screening for malignant neoplasm of colon Expected: 04/24/2025 (Approximate), Expires: 04/24/2026 documented as of this encounter Visit Diagnoses Diagnosis Chest pain in adult- Primary Primary hypertension Unspecified essential hypertension Chronic bilateral low back pain with left-sided sciatica Screening for malignant neoplasm of colon documented in this encounter Additional Health Concerns Assessment Noted Time PHQ-9 Depression Total Score: 0 04/24/20 25 3:59 PM EDT documented as of this encounter Care Teams Painter Sign Maintenance Relationship Specialty Start Date End Date Gunjan Wright ANP [address] [place] [address] PCP - General Family Medicine 04/30/20 documented as of this encounter
--- OUTSIDE RECORDS SUMMARY | 2025-04-27 11:39 | XMS_ITS | Clinical Summary ---
Author Organization [employer] Address [address] [facility] 7t [place] [address] Care Team Providers Care Grails Web Application Developer Name Role Phone Gunjan Wright Primary Care Provider [phone] Allergies No known active allergies Medications aspirin 81 MG EC tablet Take 1 tablet by mouth at bed time. Active Calcium Polycarbophil (fiber) 625 MG tablet Active methylcellulose (Citrucel) oral powder Active zoster vaccine-recombina nt adjuvanted (Shingrix) 50 MCG/0.5ML vaccine Inject 0.5 mL into the shoulder, thigh, or buttocks. 08/02/20 Active Blood Pressure kit Active selenium sulfide (Selsun) 2.5 % shampooIndication s:Rash Apply topically if needed each day (Rash). 118 mL 3 06/28/20 24 Active propranolol LA (Inderal LA) 120 MG 24 hr capsuleIndication s:Hypertension, unspecified type Take 1 capsule (120 mg) by mouth in the evening. Do not crush, chew, or split. 90 capsule 02/03/20 25 Active atorvastatin (Lipitor) 10 MG tabletIndications :Hyperlipidemia, unspecified hyperlipidemia type TAKE 1 TABLET BY MOUTH EVERY DAY 90 tablet 04/04/20 25 Active lisinopril (Prinivil) 20 MG tabletIndications :Primary hypertension Take 1 tablet (20 mg) by mouth Once per day. 90 tablet 1 04/24/20 25 2025 Active meloxicam (Mobic) 7.5 MG tabletIndications :Chronic bilateral low back pain with left-sided sciatica Take 1 tab once or twice daily as needed for back pain 60 tablet 1 04/24/20 25 Active naproxen sodium (Aleve) 220 MG tablet Take 2 tablets by mouth every 12 (twelve) hours. 2024 Discontinued(T herapy completed) atorvastatin (Lipitor) 10 MG tabletIndications :Hyperlipidemia, unspecified hyperlipidemia type TAKE 1 TABLET BY MOUTH EVERY DAY 90 tablet 01/03/20 25 2024 Discontinued lisinopril 10 MG tabletIndications :Primary hypertension TAKE 1 TABLET BY MOUTH EVERY DAY 90 tablet 01/03/20 25 2024 Discontinued lisinopril 10 MG tabletIndications :Primary hypertension TAKE 1 TABLET BY MOUTH EVERY DAY 90 tablet 04/04/20 25 2024 Discontinued(D ose adjustment) Active Problems Problem Noted Date Diagnosed Date Hypertensive disorder 12/14/2014 Shoulder pain 09/11/2014 Disorder of rotator cuff 09/20/2013 Neck pain 09/20/2013 Chronic back pain 02/21/2013 Blood in urine 01/28/2012 Encounters Date Type Department Care Team Description 04/24/2025 3:30 PM EDT Office Visit [facility] [address] [place] [phone] Gunjan Wright ANP Chest pain in adult (Primary Dx); Primary hypertension; Chronic bilateral low back pain with left-sided sciatica; Screening for malignant neoplasm of colon 04/24/2025 Travel 04/21/2025 Telephone [facility] [address] [place] [phone] Gunjan Wright ANP CHART PREP 04/04/2025 Telephone [facility] [address] [place] [address] Gunjan Wright ANP Med Refill 04/03/2025 Refill [facility] [address] [place] [phone] Gunjan Wright ANP Hyperlipidemia, unspecified hyperlipidemia type; Primary hypertension 02/27/2025 Travel 02/02/2025 Refill [facility] [address] [place] [address] Gunjan Wright ANP Hypertension, unspecified type 02/01/2025 Telephone [facility] [address] [place] [phone] Gunjan Wright ANP chart prep 02/01/2025 Telephone [facility] [address] [place] [phone] Gunjan Wright ANP No Show (PT NO SHOW FOR SICK ON SITE ) 01/31/2025 Telephone [facility] [address] [place] [address] Gunjan Wright ANP from Last 3 Months Immunizations Immunization Administration Dates Next Due Hep B, adult 01/26/2019,08/21/2017,07/17/2017 Influenza Injectable Quadriv alant Preservative Free IIV4 MDCK 08/06/2020 Influenza injectable quadriv alent preservative free 08/03/2019,06/18/2017 Influenza, IIV3, injectable 09/03/2015, 3,05/21/2012 Pneumococcal Conjugate PCV 20 04/24/2025 Pneumococcal Polysaccharide PPSV23 05/21/2012 Td (adult), 5 Lf tetanus tox oid, preservative free, adsorbed 03/11/2013 Td (adult), unspecified 06/12/2006 Tdap 08/03/2019 Zoster, Recombinant 10/08/2020,08/06/2020 Social History [...] Mass Index 28.51 04/24/2025 3:58 PM EDT Plan of Treatment Upcoming Encounters Date Type Department Care Team (Late st Contact Info) Description 06/12/2025 3:00 PM EDT Office Visit [facility] [address] [place] [address] Gunjan Wright ANP [address] [place] [address] Health Maintenance Due Date Last Done Comments CT Colonography 1965 Colonoscopy 1965 Colorectal Cancer Screening 1965 FIT DNA/Cologuard 1965 FIT 1965 FOBT 1965 Sigmoidoscopy 1965 Disability Screening 1965 COVID-19 Vaccine ( season) 2024 04/07/2021, 03/10/2021 Influenza Vaccine (#1) 2025 , 08/03/2019, 06/18/2017, Additional history exists Alcohol/Substance Use Screening 04/24/2026 04/24/2025 Depression Screening 04/24/2026 04/24/2025, 04/24/20 SDOH Screening 04/24/2026 04/24/2025 Tobacco Screening 04/24/2026 04/24/2025 Lipid Panel 05/05/2028 05/05/2023, 08/06/2020 DTaP/Tdap/Td Vaccines (2 - Td or Tdap) 08/03/2029 08/03/2019, 03/11/2013, 06/12/2006 RSV Patients and Patients Aged 60 years or older (1 - 1-dose 75+ series) 2040 Hepatitis B Vaccines Completed 01/26/2019, 08/21/2017, 07/17/2017 Zoster Vaccines Completed 10/08/2020, 08/06/2020 HIV Screening Completed 05/05/2023, 08/06/2020 Hepatitis C Screening Completed 05/05/2023, 020 Pneumococcal Vaccine: 50+ Years Completed 04/24/2025, 05/21/2012 HIB Vaccines Aged Out No longer eligi [...] Procedure Name Priority Date/Time Associated Diagnosis Comments HEPATITIS C AB W/REFL TO HCV RNA, QN, PCR Routine 05/05/2023 12:06 PM EDT Healthcare maintenance Routine screening for STI (sexually transmitted infection) HIV ANTIBODY/ANTIGEN ([place] DP) Routine 05/05/2023 12:06 PM EDT LIPID PANEL, STANDARD Routine 05/05/2023 12:06 PM EDT Primary hypertension from Last 3 Months or Most Recently Relevant to Health Maintenance Results * HIV Ab/Ag ([place] DP) (05/05/2023 12:06 PM EDT) HIV AB/AG Nonreactive Nonreactive [facility] Comment:HIV-1 p24 Ag and/or HIV-1/HIV-2 Ab not detected.A test result that is nonreactive does not exclude thepossibility of exposure to or infection with HIV-1 and/orHIV-2. Nonreactive results in this assay for individualswith prior exposure to HIV-1 and/or HIV-2 may be due toantigen and antibody levels that are below the limit ofdetection of this assay.The The App3 HIV Ag/Ab Combo assay result andsupplemental assay results should be interpreted inconjunction with the patient's clinical presentation,history and other laboratory results. If the results areinconsistent with clinical evidence, additional testing issuggested to confirm the result. 05/05/2023 12:0 6 PM EDT 05/05/2023 1:16 PM EDT us [facility] LAB BLOOD ORDERABLES Final Resul t [facility] [address] [place] [phone] * Hepatitis C Antibody with Reflex to HCV, RNA, Quantitative, Real-Time PCR (05/05/2023 12:06 PM EDT) Hepatitis C Antibody Nonreactive Nonreactive [facility] Comment:Antibodies to HCV no t detected; does not exclude early acuteHCV infection. Blood Venous blood specimen / Unknown 05/05/2023 12:06 PM EDT 05/05/2023 1:16 PM EDT Gunjan Wright [facility] BLOOD ORDERABLES Final Resul t Performing Organization Address [facility] de Phone Number [facility] [address] [place] [phone] * Lipid Panel, Standard (05/05/2023 12:06 PM EDT) Triglycerides 109 <150 mg/dL [facility] Comment:Desirable Triglyceri de: less than 150 mg/dLBorderline High Triglyceride 150-199 mg/dLHigh Triglyceride: 200-499 mg/dLVery High Triglyceride: greater than or equal to 5OO mg/dL Cholesterol 162 <200 mg/dL [facility] Comment:Desirable Cholestero l: less than 200 mg/dLBorderline High Cholesterol: 200-239 mg/dLHigh Cholesterol: greater than 239 mg/dL LDL Cholesterol Calculated 92 <100 mg/dL [facility] Comment:Desirable LDL: less than 100 mg/dLNear Optimal/Above Optimal LDL: 110- 129 mg/dLBorderline High LDL: 130-159 mg/dLHigh LDL: 160-189 mg/dLVery High LDL: greater than or equal to 190 mg/dL HDL Cholesterol 49 >40 mg/dL [facility] Comment:Desirable HDL: great er than 40 mg/dL Note: This HDL assay may give artificially low results in patients with liver disease. Blood Venous blood specimen / Unknown 05/05/2023 12:06 PM EDT 05/05/2023 1:16 PM EDT Gunjan Wright ANP LAB BLOOD ORDERABLES Final Resul t Performing Organization Address [facility] Co de Phone Number [facility] [address] [place] [phone] from Last 3 Months or Most Recently Relevant to Health Maintenance Insurance MEDICARE Care Teams Grails Web Application Developer Relationship Specialty Start Date End Date Gunjan Wright ANP [address] [place] [phone] PCP - General Family Medicine 04/30/20
--- OUTSIDE RECORDS SUMMARY | 2025-04-27 11:39 | XMS_ITS | Encounter Summary ---
Author Organization [employer] Address [address] [facility] [address]t [place] [address] Care Team Providers Care Label Operator Name Role Phone Gunjan Wright Primary Care Provider [phone] Encounter Details Date Type Department Care Team (Late Contact Info) Description 04/13/[address] [address] Gunjan Wright ANP [address] [place] [phone] Social History Tobacco Use Types Packs/Day Years Used Date Smoking Tobacco: Never Assessed Sex and Gender Information Value Date Recorded Sex Assigned at Male 06/30/2022 10:17 AM EDT Legal Sex Male 10:17 AM EDT Gender Identity Choose not to disclose 10:17 AM EDT Sexual Orientation Choose not to disclose 2021 10:17 AM EDT documented as of this encounter Plan of Treatment Upcoming Encounters Date Type Department Care Team (Late Contact Info) Description 06/12/2025 3:00 PM EDT Office Visit [address] [address] Gunjan Wright ANP [address] [place] [phone] documented as of this encounter Visit Diagnoses Not on filedocumented in this encounter Care Teams Label Operator Relationship Specialty Start Date End Date Gunjan Wright ANP [address] [place] [phone] PCP - General Family Medicine 04/30/20 documented as of this encounter
--- OUTSIDE RECORDS SUMMARY | 2025-04-27 11:39 | XMS_ITS | Encounter Summary ---
Author Organization [employer] Address [address] [place] [address] Care Team Providers Care Irrigation Specialist Name Role Phone Gunjan Wright Primary Care Provider [phone] Encounter Details Date Type Department Care Team (Latest Contact Info) Description 04/24/2025 Travel Social History Tobacco Use Types Packs/Day Years [...] AM EDT documented as of this encounter Functional Status * Over the [...] [place] documented as of this encounter Plan of Treatment Upcoming Encounters Date Type Department Care Team (Late st Contact Info) Description 06/12/2025 3:00 PM EDT Office Visit [facility] [address] [place] [address] Gunjan Wright, ANP [address] [place] [address] documented as of this encounter Visit Diagnoses Not on filedocumented in this encounter Additional Health Concerns Assessment Noted Time PHQ-9 Depression Total Score: 0 04/24/20 25 3:59 PM EDT documented as of this encounter Care Teams Irrigation Specialist Relationship Specialty Start Date End Date Gunjan Wright ANP [address] [address] PCP - General Family Medicine 04/30/20 documented as of this encounter
--- OUTSIDE RECORDS SUMMARY | 2025-04-27 11:39 | XMS_ITS | Clinical Summary ---
Author Organization [facility] Address [address] [place] [phone] Phone Care Team Providers Care Pie Icer Machine Name Role Phone Gunjan Wright NP Primary Care Provider [phone] Allergies No known active allergies Medications No known medications Active Problems No known active problems Surgical History Surgery Date Site/Laterality Comments BACK [...] 63 11/21/2024 12:35 AM EDT Temperature 36.6 C (97.9 F) 11/21/2024 12:35 AM EDT Respiratory Rate 15 11/21/2024 12:35 AM EDT [...] 2 - PCV) 11/11/2015 05/21/2012 COVID-19 Vaccine (3 - season) 2024 04/07/2021, 03/10/2021 Depression Screening 08/31/2024 Colorectal Cancer Screening: Colonoscopy 11/20/2024 HIV Screening 11/20/2024 Medicare Annual Wellness Visit 11/20/2024 Social Influencers of Health Screening 11/20/2024 Influenza Vaccine (#1) 2025 , 08/03/2019, 06/18/2017, Additional history exists Hypertension/CHF/CAD Annual BMP Blood Test 11/20/2025 11/20/2024 Cholesterol Screening (Lipid Panel) 05/05/2028 05/05/2023 DTaP,Tdap,and Td Vaccines (4 - Td or Tdap) 08/03/2029 08/03/2019, 03/11/2013, 06/12/2006 RSV Immunization Adult Patients (1 - 1-dose 75+ series) 2040 Hepatitis [...] Procedure Name Priority Date/Time Associated Diagnosis Comments COMPREHENSIVE METABOLIC PANEL STAT 11/20/2024 5:17 PM EDT from Last 3 Months or Most Recently Relevant to Health Maintenance Results * (ABNORMAL) Comprehensive metabolic panel (11/20/2024 5:17 PM EDT) Sodium 140 133 - 145 mmol/L LAB CHEMISTRY METHOD 11/20/2024 5:49 PM [facility] Potassium 4.3 3.5 - 5.5 mmol/L LAB CHEMISTRY METHOD 11/20/2024 5:49 PM [facility] Chloride 108 96 - 110 mmol/L LAB CHEMISTRY METHOD 11/20/2024 5:49 PM [facility] CO2 25 21 - 32 mmol/L LAB CHEMISTRY METHOD 11/20/2024 5:49 PM [facility] Anion Gap 7 3 - 11 LAB CHEMISTRY METHOD 11/20/2024 5:49 PM [facility] Glucose 97 70 - 100 mg/dL LAB CHEMISTRY METHOD 11/20/2024 5:49 PM [facility] BUN 13 5 - 25 mg/dL LAB CHEMISTRY METHOD 11/20/2024 5:49 PM [facility] Creatinine 0.97 0.70 - 1.30 mg/dL LAB CHEMISTRY METHOD 11/20/2024 5:49 PM [facility] eGFR 90 >=60 mL/min/1. 73m2 LAB CHEMISTRY METHOD 11/20/2024 5:49 PM [facility] Comment:Calculation based on the Chronic Kidney Disease Epidemiology Collaboration (CKD-EPI) equation refit without adjustment for race. BUN/Creatinine Ratio 13.4 LAB CHEMISTRY METHOD 11/20/2024 5:49 PM [facility] Calcium 9.4 8.5 - 10.5 mg/dL LAB CHEMISTRY METHOD 11/20/2024 5:49 PM EDT [facility] AST (SGOT) 36 10 - 42 unit/L LAB CHEMISTRY METHOD 11/20/2024 5:49 PM EDT [facility] ALT (SGPT) 64(H) 10 - 60 unit/L LAB CHEMISTRY METHOD 11/20/2024 5:49 PM EDT [facility] Alkaline Phosphatase 78 42 - 121 unit/L LAB CHEMISTRY METHOD 11/20/2024 5:49 PM EDT [facility] Total Protein 7.9 6.0 - 8.0 g/dL LAB CHEMISTRY METHOD 11/20/2024 5:49 PM EDT [facility] Albumin 4.1 3.2 - 5.0 g/dL LAB CHEMISTRY METHOD 11/20/2024 5:49 PM EDT [facility] Total Bilirubin 0.3 0.0 - 1.4 mg/dL LAB CHEMISTRY METHOD 11/20/2024 5:49 PM EDT [facility] Blood Venous blood specimen / Unknown Venipuncture / Unknown 11/20/2024 5:17 PM EDT 11/20/2024 5:23 PM EDT us Tab Lynch MD LAB BLOOD ORDERABLES Final Resu lt [facility] [address] [place] [address], from Last 3 Months or Most Recently Relevant to Health Maintenance Insurance MEDICARE MEDICAID - [place] Care Teams Pie Icer Machine Relationship Specialty Start Date End Date Gunjan Wright NP [address] [place] [phone] PCP - General 11/20/24
[2025-04-27 12:31] LABS: Alanine Aminotransferase 75 U/L (0-40); Albumin Level 4.6 g/dL (3.5-5.0); Alkaline Phosphatase 68 U/L (39-117); Anion Gap 10 (12-20); Aspartate Amino Transferase 73 U/L (5-37); Blood Urea Nitrogen 11 mg/dL (9-16); Calcium 9.5 mg/dL (8.4-10.2); Carbon Dioxide 27 mmol/L (22-29); Chloride 106 mmol/L (96-108); Cholesterol 143 mg/dL (<200); Estimated Glomerular Filt Rate 57; HDL Cholesterol 35 mg/dL (>40); Potassium 4.2 mmol/L (3.3-5.1); Sodium 139 mmol/L (135-145); Total Protein 7.7 g/dL (6.5-8.0); Triglycerides 96 mg/dL (<150)
== END 2025-04-27 10:20 | disposition home or self-care (01) ==
LOC: HO.HHCL 10:19
PROVIDERS: PCP Nurse Practitioner Primary Care; Visit Provider Nurse Practitioner Primary Care
DX: I10 Essential (primary) hypertension (principal)
CPT/HCPCS: 36415; 80053; 80061